=== PATIENT | female | born 1995 | race Caucasian/White ===

== ENCOUNTER 2017-08-15 08:33 | Inpatient (IN) | payer MEDICAID, OTHER ==
[~2017-08-15] VITALS: Ht 162.6 cm; Wt 59.0 kg
[~2017-08-15 08:33] MED LIST: FLUO40CA7 PO; QUET200T PO
[2017-08-15] MEDS ORDERED: DiphenhydrAMINE HCL 50 MG/ML VIAL IM ONE (09:15)
[2017-08-15] MEDS ORDERED: HALOPERIDOL LACTATE 5 MG/ML VIAL IM ONE (09:15)
[2017-08-15] MEDS ORDERED: LORazepam 2 MG/ML VIAL IM ONE (09:15)
[2017-08-15] MEDS ORDERED: HALOPERIDOL 5 MG TABLET PO PRN (09:45)
[2017-08-15 10:41] LABS: BASOPHILS % (AUTO) 0.2 % (0.0-2.0); EOSINOPHILS % (AUTO) 0 % (1.0-6.0); HEMATOCRIT 42.3 % (36-46); HEMOGLOBIN 14.7 g/dL (12.0-16.0); LYMPHOCYTES # (AUTO) 1.3 K/uL (1.0-4.8); LYMPHOCYTES % (AUTO) 23.4 % (22.0-44.0); MEAN CORPUSCULAR HEMOGLOBIN 31.6 pg (26.0-34.0); MEAN CORPUSCULAR HGB CONC 34.9 G/dL (31.0-37.0); MEAN CORPUSCULAR VOLUME 91 fL (80-100); MONOCYTES # (AUTO) 0.4 K/uL (0.1-1.0); MONOCYTES % (AUTO) 7.2 % (2.0-9.0); NEUTROPHILS # (AUTO) 3.9 K/uL (1.8-7.7); NEUTROPHILS % (AUTO) 69.2 % (40.0-70.0); PLATELET COUNT (AUTO) 167 K/uL (150-450); RED BLOOD CELL COUNT(AUTO) 4.66 MIL/uL (4.00-5.20); RED CELL DISTRIBUTION WIDTH 12.7 % (11.5-14.5); WHITE BLOOD COUNT (AUTO) 5.7 K/uL (4.5-11.0)
[2017-08-15 10:48] LABS: ANION GAP 18 mmol/L (8-16); CALCIUM, TOTAL 9.7 mg/dL (8.8-10.5); CARBON DIOXIDE 22 mmol/L (22-29); CHLORIDE 101 mmol/L (98-107); CREATININE 0.75 mg/dL (0.60-1.30); GLOMERULAR FILTR. RATE CALC > 60 mL/min (>60); POTASSIUM 4.4 mmol/L (3.5-5.1); SODIUM SERUM 141 mmol/L (136-145); UREA NITROGEN, BLOOD 12 mg/dL (7-18)
[2017-08-15 11:02] LABS: ALANINE AMINOTRANSFERASE 50 U/L (12-78); ALBUMIN 4.5 g/dL (3.4-5.0); ASPARTATE AMINOTRANSFERASE 23 U/L (15-37); BILIRUBIN,TOTAL 1.6 mg/dL (0.1-1.0); TOTAL PROTEIN, SERUM 7.8 g/dL (6.4-8.2)
[2017-08-15 11:06] LABS: CHOL/HDL RATIO 2.9 (3.9-5.7); THYROID STIMULATING HORMONE 20.47 uIU/mL (0.36-3.74)
[2017-08-15 11:51] VITALS: BP 120/83
[2017-08-15 16:09] VITALS: BP 118/87
[2017-08-15] MEDS: QUEtiapine FUMARATE 200 MG TABLET PO SCH (20:40)
[2017-08-16 06:01] VITALS: BP 120/88
[2017-08-16] MEDS ORDERED: BACITRACIN 28.4 GM OINTMENT TP PRN (08:00)
[2017-08-16] MEDS ORDERED: ALBUTEROL SULFATE HFA 90 MCG/PUFF 8 GM INHALER IH PRN (08:00)
[2017-08-16] MEDS ORDERED: LOPERAMIDE HCL 2 MG CAPSULE PO PRN (08:00)
[2017-08-16] MEDS ORDERED: ACETAMINOPHEN 325 MG TABLET PO PRN (08:00)
[2017-08-16] MEDS ORDERED: MAG HYDROX/AL HYDROX/SIMETH ES 30 ML SUSPENSION UDCUP PO PRN (08:00)
[2017-08-16] MEDS ORDERED: IBUPROFEN 600 MG TABLET PO PRN (08:00)
[2017-08-16] MEDS ORDERED: CloNIDine HCL 0.1 MG TABLET PO PRN (08:00)
[2017-08-16] MEDS ORDERED: MAGNESIUM HYDROXIDE SUSPENSION 30 ML UDCUP PO PRN (08:00)
[2017-08-16] MEDS: LEVOTHYROXINE SODIUM 100 MCG TABLET PO SCH (08:00)
[2017-08-16] MEDS ORDERED: PETROLATUM,WHITE 71 GM JELLY TP PRN (08:00)
[2017-08-16] MEDS ORDERED: BENZOCAINE/MENTHOL LOZENGE MM PRN (08:00)
[2017-08-16] MEDS ORDERED: ONDANSETRON HCL 4 MG TABLET PO PRN (08:00)
[2017-08-16] MEDS: LORazepam 2 MG TABLET PO PRN (16:04)
[2017-08-16 16:08] VITALS: BP 115/85
[2017-08-16] MEDS: QUEtiapine FUMARATE 200 MG TABLET PO SCH (20:41)
[2017-08-16] MEDS: ZOLPIDEM TARTRATE 10 MG TABLET PO PRN (21:00)
[2017-08-17 06:58] VITALS: BP 117/67
[2017-08-17] MEDS: LEVOTHYROXINE SODIUM 100 MCG TABLET PO SCH (07:21)
[2017-08-17] MEDS: LORazepam 2 MG TABLET PO PRN ×3 (08:06→20:27)
[2017-08-17 08:58] VITALS: BP 120/70
[2017-08-17] MEDS ORDERED: QUET100T PO (14:55)
[2017-08-17 16:00] VITALS: BP 121/88
[2017-08-17] MEDS: NICOTINE 21 MG/24 HOUR PATCH TD SCH (16:05)
[2017-08-17] MEDS: QUEtiapine FUMARATE 200 MG TABLET PO SCH (20:26)
[2017-08-18 06:39] VITALS: BP 120/68
[2017-08-18] MEDS: LEVOTHYROXINE SODIUM 100 MCG TABLET PO SCH (06:39)
[2017-08-18] MEDS: NICOTINE 21 MG/24 HOUR PATCH TD SCH (08:34)
[2017-08-18] MEDS: LORazepam 2 MG TABLET PO PRN ×2 (08:34→14:43)
[2017-08-18 09:46] VITALS: BP 122/70
[2017-08-18 16:42] VITALS: BP 116/92
[2017-08-18] MEDS: QUEtiapine FUMARATE 200 MG TABLET PO SCH (20:02)
[2017-08-18] MEDS: ZOLPIDEM TARTRATE 10 MG TABLET PO PRN (21:02)
[2017-08-19] MEDS: LEVOTHYROXINE SODIUM 100 MCG TABLET PO SCH (06:49)
[2017-08-19] MEDS: NICOTINE 21 MG/24 HOUR PATCH TD SCH (09:07)
[2017-08-19 10:15] VITALS: BP 120/80
[2017-08-19 14:55] VITALS: BP 115/80
[2017-08-19 16:33] VITALS: BP 111/75
[2017-08-19] MEDS: QUEtiapine FUMARATE 200 MG TABLET PO SCH (20:40)
[2017-08-19] MEDS: ZOLPIDEM TARTRATE 10 MG TABLET PO PRN (20:51)
[2017-08-20] MEDS: LEVOTHYROXINE SODIUM 100 MCG TABLET PO SCH (06:41)
[2017-08-20] MEDS: NICOTINE 21 MG/24 HOUR PATCH TD SCH (09:00)
[2017-08-20] MEDS: LORazepam 2 MG TABLET PO PRN (10:17)
[2017-08-20 10:18] VITALS: BP 118/77
[2017-08-20 18:03] VITALS: BP 90/60
[2017-08-20] MEDS: ZOLPIDEM TARTRATE 10 MG TABLET PO PRN (21:29)
[2017-08-20] MEDS: QUEtiapine FUMARATE 200 MG TABLET PO SCH (21:29)
[2017-08-21 01:48] VITALS: BP 103/63
[2017-08-21] MEDS: LEVOTHYROXINE SODIUM 100 MCG TABLET PO SCH (06:31)
[2017-08-21 08:24] VITALS: BP 114/71
[2017-08-21] MEDS: NICOTINE 21 MG/24 HOUR PATCH TD SCH (09:00)
[2017-08-21] MEDS: LORazepam 2 MG TABLET PO PRN (16:22)
[2017-08-21 16:32] VITALS: BP 112/64
[2017-08-21 17:33] VITALS: BP 115/68
[2017-08-21] MEDS: QUEtiapine FUMARATE 200 MG TABLET PO SCH (20:25)
[2017-08-21] MEDS: ZOLPIDEM TARTRATE 10 MG TABLET PO PRN (21:05)
[2017-08-22] MEDS: LEVOTHYROXINE SODIUM 100 MCG TABLET PO SCH (06:25)
[2017-08-22 08:54] VITALS: BP 116/71
[2017-08-22] MEDS: NICOTINE 21 MG/24 HOUR PATCH TD SCH (08:55)
[2017-08-22] MEDS: LORazepam 2 MG TABLET PO PRN ×3 (08:57→20:07)
[2017-08-22 16:25] VITALS: BP 130/87
[2017-08-22] MEDS: QUEtiapine FUMARATE 200 MG TABLET PO SCH (20:07)
[2017-08-22] MEDS: ZOLPIDEM TARTRATE 10 MG TABLET PO PRN (20:07)
[2017-08-23] MEDS: LEVOTHYROXINE SODIUM 100 MCG TABLET PO SCH (06:37)
[2017-08-23] MEDS: NICOTINE 21 MG/24 HOUR PATCH TD SCH (09:00)
[2017-08-23 09:13] VITALS: BP 129/74
[2017-08-23] MEDS: LORazepam 2 MG TABLET PO PRN ×2 (12:57→17:17)
[2017-08-23 16:11] VITALS: BP 123/79
[2017-08-23] MEDS: QUEtiapine FUMARATE 200 MG TABLET PO SCH (20:11)
[2017-08-23] MEDS: ZOLPIDEM TARTRATE 10 MG TABLET PO PRN (20:11)
[2017-08-24 05:00] VITALS: BP 118/72
[2017-08-24] MEDS: LEVOTHYROXINE SODIUM 100 MCG TABLET PO SCH (06:36)
[2017-08-24] MEDS: LORazepam 2 MG TABLET PO PRN ×2 (08:34→16:03)
[2017-08-24] MEDS: NICOTINE 21 MG/24 HOUR PATCH TD SCH (08:34)
[2017-08-24 08:37] VITALS: BP 121/71
[2017-08-24 16:18] VITALS: BP 109/79
[2017-08-24] MEDS: QUEtiapine FUMARATE 200 MG TABLET PO SCH (20:38)
[2017-08-24] MEDS: ZOLPIDEM TARTRATE 10 MG TABLET PO PRN (21:01)
[2017-08-25] MEDS: LEVOTHYROXINE SODIUM 100 MCG TABLET PO SCH (06:21)
[2017-08-25 06:45] VITALS: BP 103/60
[2017-08-25] MEDS: NICOTINE 21 MG/24 HOUR PATCH TD SCH (08:27)
[2017-08-25 08:30] VITALS: BP 104/68
[2017-08-25] MEDS: LORazepam 2 MG TABLET PO PRN ×2 (10:38→17:04)
[2017-08-25 17:04] VITALS: BP 118/65
[2017-08-25] MEDS: QUEtiapine FUMARATE 200 MG TABLET PO SCH (20:02)
[2017-08-25] MEDS: ZOLPIDEM TARTRATE 10 MG TABLET PO PRN (21:10)
[2017-08-26] MEDS: LEVOTHYROXINE SODIUM 100 MCG TABLET PO SCH (06:30)
[2017-08-26 08:09] VITALS: BP 112/61
[2017-08-26] MEDS: NICOTINE 21 MG/24 HOUR PATCH TD SCH (08:43)
[2017-08-26] MEDS: LORazepam 2 MG TABLET PO PRN ×3 (10:10→20:20)
[2017-08-26 16:14] VITALS: BP 119/71
[2017-08-26] MEDS: QUEtiapine FUMARATE 200 MG TABLET PO SCH (20:09)
[2017-08-26] MEDS: ZOLPIDEM TARTRATE 10 MG TABLET PO PRN (20:20)
[2017-08-27] MEDS: LEVOTHYROXINE SODIUM 100 MCG TABLET PO SCH (06:39)
[2017-08-27 08:30] VITALS: BP 110/74
[2017-08-27] MEDS: NICOTINE 21 MG/24 HOUR PATCH TD SCH (09:00)
[2017-08-27] MEDS: LORazepam 2 MG TABLET PO PRN ×2 (12:22→16:53)
[2017-08-27 16:11] VITALS: BP 113/67
[2017-08-27] MEDS: QUEtiapine FUMARATE 200 MG TABLET PO SCH (20:05)
[2017-08-27] MEDS: ZOLPIDEM TARTRATE 10 MG TABLET PO PRN (20:32)
[2017-08-28 03:25] VITALS: BP 117/69
[2017-08-28] MEDS: LEVOTHYROXINE SODIUM 100 MCG TABLET PO SCH (06:36)
[2017-08-28] MEDS: NICOTINE 21 MG/24 HOUR PATCH TD SCH (08:19)
[2017-08-28 09:00] VITALS: BP 118/70
[2017-08-28] MEDS: LORazepam 2 MG TABLET PO PRN ×2 (09:29→14:38)
[2017-08-28 17:57] VITALS: BP 124/60
[2017-08-28] MEDS: QUEtiapine FUMARATE 200 MG TABLET PO SCH (20:42)
[2017-08-28] MEDS: ZOLPIDEM TARTRATE 10 MG TABLET PO PRN (21:15)
[2017-08-29 01:28] VITALS: BP 117/64
[2017-08-29] MEDS: LORazepam 2 MG TABLET PO PRN ×3 (02:50→20:16)
[2017-08-29] MEDS: LEVOTHYROXINE SODIUM 100 MCG TABLET PO SCH (06:58)
[2017-08-29] MEDS: NICOTINE 21 MG/24 HOUR PATCH TD SCH (08:19)
[2017-08-29 10:26] VITALS: BP 118/70
[2017-08-29 16:38] VITALS: BP 129/74
[2017-08-29] MEDS: ZOLPIDEM TARTRATE 10 MG TABLET PO PRN (20:16)
[2017-08-29] MEDS: QUEtiapine FUMARATE 200 MG TABLET PO SCH (20:16)
[2017-08-30] MEDS: LEVOTHYROXINE SODIUM 100 MCG TABLET PO SCH (06:39)
[2017-08-30] MEDS: NICOTINE 21 MG/24 HOUR PATCH TD SCH (08:16)
[2017-08-30 08:52] VITALS: BP 118/61
[2017-08-30] MEDS: LORazepam 2 MG TABLET PO PRN ×2 (10:04→16:24)
[2017-08-30 16:00] VITALS: BP 122/84
[2017-08-30] MEDS: QUEtiapine FUMARATE 200 MG TABLET PO SCH (20:56)
[2017-08-30] MEDS: ZOLPIDEM TARTRATE 10 MG TABLET PO PRN (20:56)
[2017-08-31 05:39] VITALS: BP 117/67
[2017-08-31] MEDS: LEVOTHYROXINE SODIUM 100 MCG TABLET PO SCH (06:38)
[2017-08-31] MEDS: NICOTINE 21 MG/24 HOUR PATCH TD SCH (08:51)
[2017-08-31 08:57] VITALS: BP 120/70
[2017-08-31] MEDS: LORazepam 2 MG TABLET PO PRN ×2 (12:10→16:22)
[2017-08-31 16:00] VITALS: BP 115/71
[2017-08-31] MEDS: QUEtiapine FUMARATE 200 MG TABLET PO SCH (20:02)
[2017-08-31] MEDS: ZOLPIDEM TARTRATE 10 MG TABLET PO PRN (21:06)
[2017-09-01] MEDS: LEVOTHYROXINE SODIUM 100 MCG TABLET PO SCH (06:31)
[2017-09-01] MEDS: NICOTINE 21 MG/24 HOUR PATCH TD SCH (09:00)
[2017-09-01] MEDS: LORazepam 2 MG TABLET PO PRN ×2 (10:00→16:04)
[2017-09-01 10:01] VITALS: BP 127/70
[2017-09-01 16:36] VITALS: BP 117/72
[2017-09-01] MEDS: ZOLPIDEM TARTRATE 10 MG TABLET PO PRN (20:07)
[2017-09-01] MEDS: QUEtiapine FUMARATE 200 MG TABLET PO SCH (20:07)
[2017-09-02 06:18] VITALS: BP 116/76
[2017-09-02] MEDS: LEVOTHYROXINE SODIUM 100 MCG TABLET PO SCH (06:23)
[2017-09-02 08:32] VITALS: BP 116/76
[2017-09-02] MEDS: NICOTINE 21 MG/24 HOUR PATCH TD SCH (09:00)
[2017-09-02] MEDS: LORazepam 2 MG TABLET PO PRN ×2 (10:06→15:07)
[2017-09-02 16:11] VITALS: BP 131/85
[2017-09-02] MEDS: QUEtiapine FUMARATE 200 MG TABLET PO SCH (20:56)
[2017-09-02] MEDS: ZOLPIDEM TARTRATE 10 MG TABLET PO PRN (21:33)
[2017-09-03] MEDS: LEVOTHYROXINE SODIUM 100 MCG TABLET PO SCH (06:35)
[2017-09-03 08:15] VITALS: BP 116/66
[2017-09-03] MEDS: NICOTINE 21 MG/24 HOUR PATCH TD SCH (09:00)
[2017-09-03 11:26] VITALS: BP 118/66
[2017-09-03] MEDS: LORazepam 2 MG TABLET PO PRN ×2 (11:26→17:32)
[2017-09-03 16:12] VITALS: BP 128/67
[2017-09-03] MEDS: QUEtiapine FUMARATE 200 MG TABLET PO SCH (20:33)
[2017-09-04 06:10] VITALS: BP 101/74
[2017-09-04] MEDS: LEVOTHYROXINE SODIUM 100 MCG TABLET PO SCH (07:11)
[2017-09-04 08:42] VITALS: BP 104/74
[2017-09-04] MEDS: NICOTINE 21 MG/24 HOUR PATCH TD SCH ×2 (09:00→11:26)
[2017-09-04] MEDS: QUEtiapine FUMARATE 200 MG TABLET PO SCH (20:16)
[2017-09-04] MEDS: ZOLPIDEM TARTRATE 10 MG TABLET PO PRN (20:16)
[2017-09-05] MEDS: LEVOTHYROXINE SODIUM 100 MCG TABLET PO SCH (06:40)
[2017-09-05 08:26] VITALS: BP 107/66
[2017-09-05] MEDS: NICOTINE 21 MG/24 HOUR PATCH TD SCH (08:51)
[2017-09-05] MEDS: QUEtiapine FUMARATE 200 MG TABLET PO SCH (20:10)
[2017-09-06] MEDS: LEVOTHYROXINE SODIUM 100 MCG TABLET PO SCH (06:47)
[2017-09-06 08:31] VITALS: BP 104/62
[2017-09-06] MEDS: NICOTINE 21 MG/24 HOUR PATCH TD SCH (08:38)
[2017-09-06] MEDS: LORazepam 2 MG TABLET PO PRN ×3 (10:34→20:12)
[2017-09-06 10:35] VITALS: BP 110/66
[2017-09-06 16:00] VITALS: BP 123/75
[2017-09-06] MEDS: QUEtiapine FUMARATE 200 MG TABLET PO SCH (20:12)
[2017-09-06] MEDS: ZOLPIDEM TARTRATE 10 MG TABLET PO PRN (20:12)
[2017-09-07] MEDS: LORazepam 2 MG TABLET PO PRN (02:41)
[2017-09-07 06:34] VITALS: BP 103/61
[2017-09-07] MEDS: LEVOTHYROXINE SODIUM 100 MCG TABLET PO SCH (06:46)
[2017-09-07] MEDS: NICOTINE 21 MG/24 HOUR PATCH TD SCH (08:19)
[2017-09-07] MEDS: LORazepam 1 MG TABLET PO PRN ×2 (13:02→17:42)
[2017-09-07] MEDS: QUEtiapine FUMARATE 200 MG TABLET PO SCH (20:39)
[2017-09-08 06:19] VITALS: BP 118/75
[2017-09-08] MEDS: LEVOTHYROXINE SODIUM 100 MCG TABLET PO SCH (06:24)
[2017-09-08] MEDS: NICOTINE 21 MG/24 HOUR PATCH TD SCH (08:00)
[2017-09-08 09:17] VITALS: BP 120/66
[2017-09-08 10:13] LABS: APPEARANCE,URINE CLOUDY (CLEAR); GLUCOSE, URINE (UA) NEGATIVE (NEGATIVE); KETONES,URINE NEGATIVE (NEGATIVE); LEUKOCYTE ESTERASE ,URINE NEGATIVE (NEGATIVE); OCCULT BLOOD,URINE NEGATIVE (NEGATIVE); PH,URINE 6.5 (5.0-8.0); PROTEIN,URINE NEGATIVE (NEGATIVE)
[2017-09-08 10:19] LABS: ADD UA MICROSCOPIC YES
[2017-09-08 10:20] LABS: RBC,URINE None Seen /HPF (0-2); SQUAMOUS EPITHELIAL CELL,UR Many /LPF (None Seen); WBC,URINE None Seen /HPF (0-5)
[2017-09-08] MEDS: LORazepam 1 MG TABLET PO PRN (14:40)
[2017-09-08] MEDS: QUEtiapine FUMARATE 200 MG TABLET PO SCH (20:32)
[2017-09-09 04:44] VITALS: BP 121/63
[2017-09-09] MEDS: LEVOTHYROXINE SODIUM 100 MCG TABLET PO SCH (06:01)
[2017-09-09] MEDS: NICOTINE 21 MG/24 HOUR PATCH TD SCH (08:07)
[2017-09-09 08:45] VITALS: BP 116/74
[2017-09-09] MEDS: LORazepam 1 MG TABLET PO PRN (14:05)
[2017-09-09 16:51] VITALS: BP 120/87
[2017-09-09] MEDS: QUEtiapine FUMARATE 200 MG TABLET PO SCH (20:23)
[2017-09-10] MEDS: LEVOTHYROXINE SODIUM 100 MCG TABLET PO SCH (06:55)
[2017-09-10 07:08] VITALS: BP 118/72
[2017-09-10] MEDS: NICOTINE 21 MG/24 HOUR PATCH TD SCH (09:00)
[2017-09-10 10:51] VITALS: BP 119/63
[2017-09-10] MEDS: LORazepam 1 MG TABLET PO PRN ×3 (10:53→20:07)
[2017-09-10 16:00] VITALS: BP 115/76
[2017-09-10] MEDS: ZOLPIDEM TARTRATE 10 MG TABLET PO PRN (20:07)
[2017-09-10] MEDS: QUEtiapine FUMARATE 200 MG TABLET PO SCH (20:07)
[2017-09-11 06:32] VITALS: BP 117/63
[2017-09-11] MEDS: LEVOTHYROXINE SODIUM 100 MCG TABLET PO SCH (06:34)
[2017-09-11 08:51] VITALS: BP 122/68
[2017-09-11] MEDS: LORazepam 1 MG TABLET PO PRN ×2 (13:52→18:32)
[2017-09-11 16:05] VITALS: BP 128/80
[2017-09-11] MEDS: ZOLPIDEM TARTRATE 10 MG TABLET PO PRN (20:23)
[2017-09-11] MEDS: QUEtiapine FUMARATE 200 MG TABLET PO SCH (20:23)
[2017-09-12 06:24] VITALS: BP 105/61
[2017-09-12] MEDS: LEVOTHYROXINE SODIUM 100 MCG TABLET PO SCH (06:31)
[2017-09-12 08:31] VITALS: BP 111/57
[2017-09-12] MEDS: LORazepam 1 MG TABLET PO PRN ×2 (10:46→20:21)
[2017-09-12 16:09] VITALS: BP 115/73
[2017-09-12] MEDS: QUEtiapine FUMARATE 200 MG TABLET PO SCH (20:20)
[2017-09-12] MEDS: ZOLPIDEM TARTRATE 10 MG TABLET PO PRN (21:01)
[2017-09-13] MEDS: LEVOTHYROXINE SODIUM 100 MCG TABLET PO SCH (06:43)
[2017-09-13 07:05] VITALS: BP 108/68
[2017-09-13 08:08] VITALS: BP 119/74
[2017-09-13] MEDS: QUEtiapine FUMARATE 200 MG TABLET PO SCH (20:05)
[2017-09-13] MEDS: ZOLPIDEM TARTRATE 10 MG TABLET PO PRN (20:18)
[2017-09-14] MEDS: LEVOTHYROXINE SODIUM 100 MCG TABLET PO SCH (06:15)
[2017-09-14 09:00] VITALS: BP 113/59
[2017-09-14] MEDS ORDERED: QUET200T PO (12:26)
[2017-09-14] MEDS ORDERED: LEVO125T95 PO (12:26)
[2017-09-14] MEDS: QUEtiapine FUMARATE 200 MG TABLET PO SCH (20:13)
[2017-09-15 06:20] VITALS: BP 121/69
[2017-09-15] MEDS: LEVOTHYROXINE SODIUM 100 MCG TABLET PO SCH (06:52)
[2017-09-15 08:30] VITALS: BP 114/57
[2017-09-15] MEDS: LORazepam 1 MG TABLET PO PRN (17:32)
[2017-09-15] MEDS: QUEtiapine FUMARATE 200 MG TABLET PO SCH (20:14)
[2017-09-16 05:43] VITALS: BP 110/82
[2017-09-16] MEDS: LEVOTHYROXINE SODIUM 100 MCG TABLET PO SCH (06:32)
[2017-09-16] MEDS: QUEtiapine FUMARATE 200 MG TABLET PO SCH (20:36)
[2017-09-17] MEDS: LEVOTHYROXINE SODIUM 100 MCG TABLET PO SCH (06:26)
[2017-09-17 08:43] VITALS: BP 113/72
[2017-09-17] MEDS: LORazepam 1 MG TABLET PO PRN ×2 (14:38→20:37)
[2017-09-17] MEDS: QUEtiapine FUMARATE 200 MG TABLET PO SCH (20:37)
[2017-09-18] MEDS: LEVOTHYROXINE SODIUM 100 MCG TABLET PO SCH (06:40)
[2017-09-18] MEDS: LORazepam 1 MG TABLET PO PRN ×2 (12:13→20:13)
[2017-09-18] MEDS: QUEtiapine FUMARATE 200 MG TABLET PO SCH (20:13)
[2017-09-19] MEDS: LEVOTHYROXINE SODIUM 100 MCG TABLET PO SCH (06:38)
[2017-09-19 08:00] VITALS: BP 115/60
[2017-09-19] MEDS ORDERED: TUBERCULIN, PURIFIED PROTEIN DERIVATIVE 5 TU/0.1 ML SYG ID ONE (10:45)
[2017-09-19] MEDS: LORazepam 1 MG TABLET PO PRN ×2 (13:57→19:02)
[2017-09-19 16:18] VITALS: BP 110/70
[2017-09-19] MEDS: QUEtiapine FUMARATE 200 MG TABLET PO SCH (20:10)
[2017-09-19] MEDS ORDERED: LEVO100 PO (21:11)
[2017-09-20] MEDS: LEVOTHYROXINE SODIUM 100 MCG TABLET PO SCH (06:25)
[2017-09-20 07:12] VITALS: BP 112/68
== END 2017-09-20 07:33 | disposition home or self-care (01) | DRG 753 ==
LOC: EMS 08:34 → B3A 10:08
PROVIDERS: ATTEND Psychiatry & Neurology Child & Adolescent Psychiatry
DX: F31.2 Bipolar disorder, current episode manic severe with psychotic features (principal); E32.8 Other diseases of thymus; E03.9 Hypothyroidism, unspecified; F12.90 Cannabis use, unspecified, uncomplicated; F17.200 Nicotine dependence, unspecified, uncomplicated; F41.9 Anxiety disorder, unspecified; G47.00 Insomnia, unspecified; Z79.899 Other long term (current) drug therapy; Z81.8 Family history of other mental and behavioral disorders; Z71.6 Tobacco abuse counseling; Z71.51 Drug abuse counseling and surveillance of drug abuser; Z56.0 Unemployment, unspecified; Z72.89 Other problems related to lifestyle; Z71.41 Alcohol abuse counseling and surveillance of alcoholic; R30.0 Dysuria
CPT/HCPCS: 80307; 82306; 84439; 84443; 87081; 96372; 99285; G0480; J1200; J1630; J2060

== ENCOUNTER 2017-10-15 20:25 | Inpatient (IN) | payer MEDICAID, OTHER ==
[~2017-10-15] VITALS: Ht 162.6 cm; Wt 60.1 kg
[~2017-10-15 20:25] MED LIST changes: -FLUO40CA7 PO; +LEVO100 PO
[2017-10-15] MEDS ORDERED: HALOPERIDOL LACTATE 5 MG/ML VIAL IM ONE (21:45)
[2017-10-15] MEDS ORDERED: LORazepam 2 MG/ML VIAL IM ONE (21:45)
[2017-10-15] MEDS ORDERED: DiphenhydrAMINE HCL 50 MG/ML VIAL IM ONE (21:45)
[2017-10-15] MEDS ORDERED: HALOPERIDOL 5 MG TABLET PO PRN (23:30)
[2017-10-15 23:37] LABS: BASOPHILS % (AUTO) 0.4 % (0.0-2.0); EOSINOPHILS % (AUTO) 0.1 % (1.0-6.0); HEMATOCRIT 39.1 % (36-46); HEMOGLOBIN 13.3 g/dL (12.0-16.0); LYMPHOCYTES # (AUTO) 2.7 K/uL (1.0-4.8); LYMPHOCYTES % (AUTO) 35.3 % (22.0-44.0); MEAN CORPUSCULAR HEMOGLOBIN 31.4 pg (26.0-34.0); MEAN CORPUSCULAR HGB CONC 34.1 G/dL (31.0-37.0); MEAN CORPUSCULAR VOLUME 92 fL (80-100); MONOCYTES # (AUTO) 0.6 K/uL (0.1-1.0); MONOCYTES % (AUTO) 7.6 % (2.0-9.0); NEUTROPHILS # (AUTO) 4.4 K/uL (1.8-7.7); NEUTROPHILS % (AUTO) 56.6 % (40.0-70.0); PLATELET COUNT (AUTO) 183 K/uL (150-450); RED BLOOD CELL COUNT(AUTO) 4.24 MIL/uL (4.00-5.20); RED CELL DISTRIBUTION WIDTH 13.4 % (11.5-14.5)
[2017-10-15 23:47] LABS: ANION GAP 8 mmol/L (8-16); CALCIUM, TOTAL 9.1 mg/dL (8.8-10.5); CARBON DIOXIDE 27 mmol/L (22-29); CHLORIDE 108 mmol/L (98-107); CREATININE 0.77 mg/dL (0.60-1.30); GLOMERULAR FILTR. RATE CALC > 60 mL/min (>60); GLUCOSE,RANDOM 75 mg/dL (70-110); POTASSIUM 3.6 mmol/L (3.5-5.1); SODIUM SERUM 143 mmol/L (136-145); UREA NITROGEN, BLOOD 8 mg/dL (7-18)
[2017-10-15 23:53] LABS: ALANINE AMINOTRANSFERASE 36 U/L (12-78); ALKALINE PHOSPHATASE 91 U/L (46-116); ASPARTATE AMINOTRANSFERASE 23 U/L (15-37); BILIRUBIN,TOTAL 1.1 mg/dL (0.1-1.0); TOTAL PROTEIN, SERUM 7.2 g/dL (6.4-8.2)
[2017-10-16 02:56] LABS: CHOL/HDL RATIO 2.6 (3.9-5.7); CHOLESTEROL 140 mg/dL (131-200); HDL CHOLESTEROL 53 mg/dL (40-60); LDL CHOL (CALC.) 81 mg/dL (0-130); TRIGLYCERIDES 32 mg/dL (15-150)
[2017-10-16] MEDS ORDERED: INFLUENZA VIRUS VACCINE QVS 2017-18 (3YR+)/PF 60 MCG/0.5 ML SYRINGE IM ONE (03:15)
[2017-10-16 04:52] VITALS: BP 104/55
[2017-10-16] MEDS ORDERED: HALOPERIDOL LACTATE 5 MG/ML VIAL IM PRN (19:00)
[2017-10-16] MEDS: PALIPERIDONE 3 MG ER TABLET PO SCH (19:00)
[2017-10-16] MEDS ORDERED: DiphenhydrAMINE HCL 50 MG/ML VIAL ONE (20:57)
[2017-10-16] MEDS ORDERED: HALOPERIDOL LACTATE 5 MG/ML VIAL IM ONE (21:00)
[2017-10-16] MEDS ORDERED: DiphenhydrAMINE HCL 50 MG/ML VIAL IM ONE (21:00)
[2017-10-16] MEDS ORDERED: LORazepam 2 MG/ML VIAL IM ONE (21:00)
[2017-10-17] MEDS: LEVOTHYROXINE SODIUM 50 MCG TABLET PO SCH (06:57)
[2017-10-17] MEDS ORDERED: PALIPERIDONE 3 MG ER TABLET PO SCH ×2 (09:00→17:00)
[2017-10-17] MEDS: HALOPERIDOL LACTATE 5 MG/ML VIAL IM PRN ×2 (13:30→18:21)
[2017-10-17 18:44] VITALS: BP 124/92
[2017-10-17] MEDS ORDERED: HALOPERIDOL LACTATE 5 MG/ML VIAL IM ONE (19:45)
[2017-10-17] MEDS ORDERED: DiphenhydrAMINE HCL 50 MG/ML VIAL IM ONE (19:45)
[2017-10-17] MEDS ORDERED: LORazepam 2 MG/ML VIAL IM ONE (19:45)
[2017-10-18] MEDS: LEVOTHYROXINE SODIUM 50 MCG TABLET PO SCH (06:50)
[2017-10-18] MEDS ORDERED: PALIPERIDONE 6 MG ER TABLET PO SCH (09:00)
[2017-10-18] MEDS: HALOPERIDOL LACTATE 5 MG/ML VIAL IM PRN (09:11)
[2017-10-18] MEDS ORDERED: HALOPERIDOL LACTATE 5 MG/ML VIAL ONE (16:09)
[2017-10-18] MEDS ORDERED: DiphenhydrAMINE HCL 50 MG/ML VIAL ONE (16:09)
[2017-10-18] MEDS ORDERED: LORazepam 2 MG/ML VIAL IM ONE (16:15)
[2017-10-18] MEDS ORDERED: DiphenhydrAMINE HCL 50 MG/ML VIAL IM ONE (16:15)
[2017-10-18] MEDS ORDERED: HALOPERIDOL LACTATE 5 MG/ML VIAL IM ONE (16:15)
[2017-10-18 17:00] VITALS: BP 106/66
[2017-10-18] MEDS: QUEtiapine FUMARATE 200 MG TABLET PO SCH (20:14)
[2017-10-18] MEDS ORDERED: HALOPERIDOL LACTATE 5 MG/ML VIAL IM PRN (21:00)
[2017-10-19] MEDS: LEVOTHYROXINE SODIUM 50 MCG TABLET PO SCH (07:11)
[2017-10-19 12:39] VITALS: BP 121/72
[2017-10-19] MEDS: QUEtiapine FUMARATE 200 MG TABLET PO SCH (20:17)
[2017-10-20] MEDS: LEVOTHYROXINE SODIUM 50 MCG TABLET PO SCH (07:17)
[2017-10-20 08:33] VITALS: BP 121/84
[2017-10-20] MEDS: LORazepam 2 MG TABLET PO PRN ×2 (13:47→17:52)
[2017-10-20 17:48] VITALS: BP 117/80
[2017-10-20] MEDS: QUEtiapine FUMARATE 200 MG TABLET PO SCH (20:13)
[2017-10-21] MEDS: LEVOTHYROXINE SODIUM 50 MCG TABLET PO SCH (06:45)
[2017-10-21 08:33] VITALS: BP 115/76
[2017-10-21 16:28] VITALS: BP 115/83
[2017-10-21] MEDS: LORazepam 2 MG TABLET PO PRN (16:33)
[2017-10-21] MEDS: QUEtiapine FUMARATE 200 MG TABLET PO SCH (20:10)
[2017-10-21] MEDS: ZOLPIDEM TARTRATE 10 MG TABLET PO PRN (20:48)
[2017-10-22] MEDS: LEVOTHYROXINE SODIUM 50 MCG TABLET PO SCH (06:41)
[2017-10-22 08:26] VITALS: BP 117/61
[2017-10-22] MEDS: LORazepam 2 MG TABLET PO PRN (12:04)
[2017-10-22 15:31] LABS: AMPHET/METH SCREEN,URINE NEGATIVE (NEGATIVE); BARBITURATE SCREEN, URINE NEGATIVE (NEGATIVE); BENZODIAZEPINES SCREEN,URINE NEGATIVE (NEGATIVE); CANNABINOID SCREEN,URINE NEGATIVE (NEGATIVE); COCAINE SCREEN,URINE NEGATIVE (NEGATIVE); METHADONE SCREEN, URINE NEGATIVE (NEGATIVE); OPIATE SCREEN,URINE NEGATIVE (NEGATIVE)
[2017-10-22 15:35] LABS: PHENCYCLIDINE SCREEN,URINE NEGATIVE (NEGATIVE)
[2017-10-22 19:37] VITALS: BP 121/80
[2017-10-22] MEDS: QUEtiapine FUMARATE 200 MG TABLET PO SCH (20:51)
[2017-10-23] MEDS: LEVOTHYROXINE SODIUM 50 MCG TABLET PO SCH (07:02)
[2017-10-23 08:17] VITALS: BP 120/80
[2017-10-23] MEDS ORDERED: TUBERCULIN, PURIFIED PROTEIN DERIVATIVE 5 TU/0.1 ML SYG ID ONE (15:30)
[2017-10-23 19:54] VITALS: BP 122/81
[2017-10-23] MEDS: QUEtiapine FUMARATE 200 MG TABLET PO SCH (20:35)
[2017-10-24] MEDS: LEVOTHYROXINE SODIUM 50 MCG TABLET PO SCH (06:20)
[2017-10-24] MEDS: QUEtiapine FUMARATE 200 MG TABLET PO SCH (21:03)
[2017-10-24] MEDS: ZOLPIDEM TARTRATE 10 MG TABLET PO PRN (21:04)
[2017-10-24] MEDS: LORazepam 2 MG TABLET PO PRN (21:04)
[2017-10-25] MEDS: LEVOTHYROXINE SODIUM 50 MCG TABLET PO SCH (07:14)
[2017-10-25] MEDS: LORazepam 2 MG TABLET PO PRN (12:59)
[2017-10-25] MEDS: QUEtiapine FUMARATE 200 MG TABLET PO SCH (20:10)
[2017-10-25] MEDS: ZOLPIDEM TARTRATE 10 MG TABLET PO PRN (20:10)
[2017-10-26] MEDS: LEVOTHYROXINE SODIUM 50 MCG TABLET PO SCH (06:47)
[2017-10-26 08:17] VITALS: BP 118/67
[2017-10-26] MEDS: LORazepam 2 MG TABLET PO PRN ×2 (14:35→18:38)
[2017-10-26 17:54] VITALS: BP 124/77
[2017-10-26] MEDS: QUEtiapine FUMARATE 200 MG TABLET PO SCH (20:11)
[2017-10-26] MEDS: ZOLPIDEM TARTRATE 10 MG TABLET PO PRN (20:11)
[2017-10-27] MEDS: LEVOTHYROXINE SODIUM 50 MCG TABLET PO SCH (07:06)
[2017-10-27 08:00] VITALS: BP 128/69
[2017-10-27] MEDS: LORazepam 2 MG TABLET PO PRN ×2 (13:28→18:53)
[2017-10-27 18:44] VITALS: BP 126/73
[2017-10-27] MEDS: ZOLPIDEM TARTRATE 10 MG TABLET PO PRN (18:53)
[2017-10-27] MEDS: QUEtiapine FUMARATE 200 MG TABLET PO SCH (20:24)
[2017-10-28] MEDS: LEVOTHYROXINE SODIUM 50 MCG TABLET PO SCH (06:59)
[2017-10-28 08:27] VITALS: BP 105/59
[2017-10-28 08:28] VITALS: BP 105/59
[2017-10-28] MEDS: LORazepam 2 MG TABLET PO PRN ×2 (10:19→16:04)
[2017-10-28 16:56] VITALS: BP 113/62
[2017-10-28] MEDS ORDERED: MAG HYDROX/AL HYDROX/SIMETH ES 30 ML SUSPENSION UDCUP PO PRN (17:45)
[2017-10-28] MEDS ORDERED: MAGNESIUM HYDROXIDE SUSPENSION 30 ML UDCUP PO PRN (17:45)
[2017-10-28] MEDS ORDERED: ACETAMINOPHEN 325 MG TABLET PO PRN (17:45)
[2017-10-28] MEDS ORDERED: ONDANSETRON HCL 4 MG TABLET PO PRN (17:45)
[2017-10-28] MEDS ORDERED: BACITRACIN 28.4 GM OINTMENT TP PRN (17:45)
[2017-10-28] MEDS ORDERED: PETROLATUM,WHITE 71 GM JELLY TP PRN (17:45)
[2017-10-28] MEDS ORDERED: CloNIDine HCL 0.1 MG TABLET PO PRN (17:45)
[2017-10-28] MEDS ORDERED: LOPERAMIDE HCL 2 MG CAPSULE PO PRN (17:45)
[2017-10-28] MEDS ORDERED: IBUPROFEN 600 MG TABLET PO PRN (17:45)
[2017-10-28] MEDS: QUEtiapine FUMARATE 200 MG TABLET PO SCH (20:42)
[2017-10-29] MEDS: LEVOTHYROXINE SODIUM 50 MCG TABLET PO SCH (06:45)
[2017-10-29] MEDS: OMEPRAZOLE 20 MG CAPSULE PO SCH (08:38)
[2017-10-29] MEDS: DOCUSATE SODIUM 100 MG CAPSULE PO SCH (08:38)
[2017-10-29 08:59] VITALS: BP 102/69
[2017-10-29] MEDS ORDERED: TUBERCULIN, PURIFIED PROTEIN DERIVATIVE 5 TU/0.1 ML SYG ID ONE (10:45)
[2017-10-29] MEDS: LORazepam 2 MG TABLET PO PRN (13:11)
[2017-10-29 18:00] VITALS: BP 126/80
[2017-10-29] MEDS: QUEtiapine FUMARATE 200 MG TABLET PO SCH (20:39)
[2017-10-30] MEDS: LEVOTHYROXINE SODIUM 50 MCG TABLET PO SCH (07:08)
[2017-10-30] MEDS: DOCUSATE SODIUM 100 MG CAPSULE PO SCH (09:00)
[2017-10-30] MEDS: OMEPRAZOLE 20 MG CAPSULE PO SCH (09:00)
[2017-10-30] MEDS: LORazepam 2 MG TABLET PO PRN ×2 (14:30→20:23)
[2017-10-30] MEDS: QUEtiapine FUMARATE 200 MG TABLET PO SCH (20:22)
[2017-10-31 04:52] VITALS: BP 103/66
[2017-10-31] MEDS: LEVOTHYROXINE SODIUM 50 MCG TABLET PO SCH (07:17)
[2017-10-31 08:21] VITALS: BP 128/74
[2017-10-31 08:26] VITALS: BP 128/74
[2017-10-31] MEDS: DOCUSATE SODIUM 100 MG CAPSULE PO SCH (09:00)
[2017-10-31] MEDS: OMEPRAZOLE 20 MG CAPSULE PO SCH (09:00)
[2017-10-31] MEDS: LORazepam 2 MG TABLET PO PRN ×2 (13:23→17:24)
[2017-10-31 17:01] VITALS: BP 122/75
[2017-10-31] MEDS: QUEtiapine FUMARATE 200 MG TABLET PO SCH (20:05)
[2017-10-31] MEDS: ZOLPIDEM TARTRATE 10 MG TABLET PO PRN (20:39)
[2017-11-01] MEDS: LEVOTHYROXINE SODIUM 50 MCG TABLET PO SCH (07:01)
[2017-11-01] MEDS: DOCUSATE SODIUM 100 MG CAPSULE PO SCH (09:00)
[2017-11-01] MEDS: OMEPRAZOLE 20 MG CAPSULE PO SCH (09:00)
[2017-11-01] MEDS: LORazepam 2 MG TABLET PO PRN (14:20)
[2017-11-01 16:42] VITALS: BP 102/72
[2017-11-01] MEDS: QUEtiapine FUMARATE 200 MG TABLET PO SCH (20:48)
[2017-11-01] MEDS: ZOLPIDEM TARTRATE 10 MG TABLET PO PRN (20:48)
[2017-11-02] MEDS: LEVOTHYROXINE SODIUM 50 MCG TABLET PO SCH (06:19)
[2017-11-02 08:08] VITALS: BP 136/81
[2017-11-02] MEDS: DOCUSATE SODIUM 100 MG CAPSULE PO SCH (08:33)
[2017-11-02] MEDS: OMEPRAZOLE 20 MG CAPSULE PO SCH (08:34)
[2017-11-02] MEDS: QUEtiapine FUMARATE 200 MG TABLET PO SCH (20:55)
[2017-11-03] MEDS: LEVOTHYROXINE SODIUM 50 MCG TABLET PO SCH (07:00)
[2017-11-03] MEDS: DOCUSATE SODIUM 100 MG CAPSULE PO SCH (09:00)
[2017-11-03] MEDS: OMEPRAZOLE 20 MG CAPSULE PO SCH (09:00)
[2017-11-03 18:34] VITALS: BP 118/78
[2017-11-03] MEDS: QUEtiapine FUMARATE 200 MG TABLET PO SCH (20:11)
[2017-11-04] MEDS: LEVOTHYROXINE SODIUM 50 MCG TABLET PO SCH (06:48)
[2017-11-04] MEDS: OMEPRAZOLE 20 MG CAPSULE PO SCH (09:00)
[2017-11-04] MEDS: DOCUSATE SODIUM 100 MG CAPSULE PO SCH (09:00)
[2017-11-04] MEDS: QUEtiapine FUMARATE 200 MG TABLET PO SCH (20:26)
[2017-11-05] MEDS: LEVOTHYROXINE SODIUM 50 MCG TABLET PO SCH (06:41)
[2017-11-05] MEDS: DOCUSATE SODIUM 100 MG CAPSULE PO SCH (09:00)
[2017-11-05] MEDS: OMEPRAZOLE 20 MG CAPSULE PO SCH (09:00)
[2017-11-05 16:00] VITALS: BP 114/71
[2017-11-05] MEDS: LORazepam 2 MG TABLET PO PRN (18:33)
[2017-11-05] MEDS: QUEtiapine FUMARATE 200 MG TABLET PO SCH (20:30)
[2017-11-06] MEDS: LEVOTHYROXINE SODIUM 50 MCG TABLET PO SCH (06:33)
[2017-11-06] MEDS: QUEtiapine FUMARATE 200 MG TABLET PO SCH (20:53)
[2017-11-07] MEDS: LEVOTHYROXINE SODIUM 50 MCG TABLET PO SCH (06:54)
[2017-11-07] MEDS: QUEtiapine FUMARATE 200 MG TABLET PO SCH (20:21)
[2017-11-08] MEDS: LEVOTHYROXINE SODIUM 50 MCG TABLET PO SCH (06:51)
[2017-11-08] MEDS: BENZOYL PEROXIDE 5% TP SCH (18:15)
[2017-11-08] MEDS: QUEtiapine FUMARATE 200 MG TABLET PO SCH (20:50)
[2017-11-09] MEDS: LEVOTHYROXINE SODIUM 50 MCG TABLET PO SCH (06:59)
[2017-11-09] MEDS: BENZOYL PEROXIDE 5% TP SCH (09:00)
[2017-11-09] MEDS: QUEtiapine FUMARATE 200 MG TABLET PO SCH (20:25)
[2017-11-10] MEDS: LEVOTHYROXINE SODIUM 50 MCG TABLET PO SCH (06:48)
[2017-11-10] MEDS: BENZOYL PEROXIDE 5% TP SCH (09:00)
[2017-11-10] MEDS: QUEtiapine FUMARATE 200 MG TABLET PO SCH (20:20)
[2017-11-11] MEDS: LEVOTHYROXINE SODIUM 50 MCG TABLET PO SCH (06:49)
[2017-11-11] MEDS: BENZOYL PEROXIDE 5% TP SCH (08:45)
[2017-11-11] MEDS: QUEtiapine FUMARATE 200 MG TABLET PO SCH (20:54)
[2017-11-12] MEDS: LEVOTHYROXINE SODIUM 50 MCG TABLET PO SCH (06:42)
[2017-11-12 08:14] VITALS: BP 116/78
[2017-11-12] MEDS: BENZOYL PEROXIDE 5% TP SCH (09:07)
[2017-11-12] MEDS: QUEtiapine FUMARATE 200 MG TABLET PO SCH (20:13)
[2017-11-13] MEDS: LEVOTHYROXINE SODIUM 50 MCG TABLET PO SCH (06:55)
[2017-11-13] MEDS: BENZOYL PEROXIDE 5% TP SCH (09:35)
[2017-11-13] MEDS: QUEtiapine FUMARATE 200 MG TABLET PO SCH (20:11)
[2017-11-14] MEDS: LEVOTHYROXINE SODIUM 50 MCG TABLET PO SCH (06:49)
[2017-11-14] MEDS: BENZOYL PEROXIDE 5% TP SCH (08:49)
[2017-11-14] MEDS: LORazepam 2 MG TABLET PO PRN ×2 (08:58→16:09)
[2017-11-14 16:39] VITALS: BP 113/69
[2017-11-14] MEDS: QUEtiapine FUMARATE 200 MG TABLET PO SCH (20:19)
[2017-11-14] MEDS: ZOLPIDEM TARTRATE 10 MG TABLET PO PRN (20:36)
[2017-11-15] MEDS: LEVOTHYROXINE SODIUM 50 MCG TABLET PO SCH (06:53)
[2017-11-15] MEDS: BENZOYL PEROXIDE 5% TP SCH (08:25)
[2017-11-15 16:00] VITALS: BP 148/92
[2017-11-15] MEDS: LORazepam 2 MG TABLET PO PRN (17:55)
[2017-11-15] MEDS: QUEtiapine FUMARATE 200 MG TABLET PO SCH (20:50)
[2017-11-16] MEDS: LEVOTHYROXINE SODIUM 50 MCG TABLET PO SCH (06:42)
[2017-11-16] MEDS: BENZOYL PEROXIDE 5% TP SCH (08:41)
[2017-11-16] MEDS: LORazepam 2 MG TABLET PO PRN ×2 (12:33→18:15)
[2017-11-16 18:11] VITALS: BP 136/72
[2017-11-16] MEDS: QUEtiapine FUMARATE 200 MG TABLET PO SCH (20:16)
[2017-11-17] MEDS: LEVOTHYROXINE SODIUM 50 MCG TABLET PO SCH (06:52)
[2017-11-17] MEDS: BENZOYL PEROXIDE 5% TP SCH (09:22)
[2017-11-17 17:59] VITALS: BP 116/78
[2017-11-17] MEDS: QUEtiapine FUMARATE 200 MG TABLET PO SCH (20:25)
[2017-11-18] MEDS: LEVOTHYROXINE SODIUM 50 MCG TABLET PO SCH (07:11)
[2017-11-18] MEDS: BENZOYL PEROXIDE 5% TP SCH (09:00)
[2017-11-18 16:00] VITALS: BP 121/73
[2017-11-18] MEDS: QUEtiapine FUMARATE 200 MG TABLET PO SCH (20:18)
[2017-11-19] MEDS: LEVOTHYROXINE SODIUM 50 MCG TABLET PO SCH (06:35)
[2017-11-19] MEDS: QUEtiapine FUMARATE 200 MG TABLET PO SCH (20:17)
[2017-11-20] MEDS: LEVOTHYROXINE SODIUM 50 MCG TABLET PO SCH (06:55)
[2017-11-20] MEDS: QUEtiapine FUMARATE 200 MG TABLET PO SCH (20:20)
[2017-11-21] MEDS: LEVOTHYROXINE SODIUM 50 MCG TABLET PO SCH (07:00)
[2017-11-21] MEDS: QUEtiapine FUMARATE 200 MG TABLET PO SCH (21:48)
[2017-11-22] MEDS: LEVOTHYROXINE SODIUM 50 MCG TABLET PO SCH (07:00)
[2017-11-22 16:37] VITALS: BP 117/88
[2017-11-22] MEDS: QUEtiapine FUMARATE 200 MG TABLET PO SCH (20:26)
[2017-11-23] MEDS: LEVOTHYROXINE SODIUM 50 MCG TABLET PO SCH (07:01)
[2017-11-23 08:14] VITALS: BP 120/82
[2017-11-23] MEDS: QUEtiapine FUMARATE 200 MG TABLET PO SCH (20:39)
[2017-11-24] MEDS: LEVOTHYROXINE SODIUM 50 MCG TABLET PO SCH (06:50)
[2017-11-24 08:15] VITALS: BP 128/74
[2017-11-24] MEDS: QUEtiapine FUMARATE 200 MG TABLET PO SCH (20:40)
[2017-11-25] MEDS: LEVOTHYROXINE SODIUM 50 MCG TABLET PO SCH (07:00)
[2017-11-25] MEDS: QUEtiapine FUMARATE 200 MG TABLET PO SCH (21:09)
[2017-11-26] MEDS: LEVOTHYROXINE SODIUM 50 MCG TABLET PO SCH (06:40)
[2017-11-26 09:03] LABS: EOSINOPHILS % (AUTO) 0.1 % (1.0-6.0); HEMATOCRIT 39.9 % (36-46); HEMOGLOBIN 13.8 g/dL (12.0-16.0); LYMPHOCYTES # (AUTO) 2.5 K/uL (1.0-4.8); LYMPHOCYTES % (AUTO) 42.9 % (22.0-44.0); MEAN CORPUSCULAR HEMOGLOBIN 31.5 pg (26.0-34.0); MEAN CORPUSCULAR HGB CONC 34.7 G/dL (31.0-37.0); MEAN CORPUSCULAR VOLUME 91 fL (80-100); MONOCYTES # (AUTO) 0.5 K/uL (0.1-1.0); MONOCYTES % (AUTO) 8.6 % (2.0-9.0); NEUTROPHILS # (AUTO) 2.7 K/uL (1.8-7.7); NEUTROPHILS % (AUTO) 47.4 % (40.0-70.0); PLATELET COUNT (AUTO) 153 K/uL (150-450); RED CELL DISTRIBUTION WIDTH 12.8 % (11.5-14.5)
[2017-11-26 09:23] LABS: ANION GAP 11 mmol/L (8-16); CALCIUM, TOTAL 8.9 mg/dL (8.8-10.5); CARBON DIOXIDE 26 mmol/L (22-29); CHLORIDE 106 mmol/L (98-107); CREATININE 0.74 mg/dL (0.60-1.30); GLOMERULAR FILTR. RATE CALC > 60 mL/min (>60); GLUCOSE,RANDOM 83 mg/dL (70-110); POTASSIUM 3.5 mmol/L (3.5-5.1); SODIUM SERUM 143 mmol/L (136-145); UREA NITROGEN, BLOOD 11 mg/dL (7-18)
[2017-11-26] MEDS: QUEtiapine FUMARATE 200 MG TABLET PO SCH (20:43)
[2017-11-27] MEDS: LEVOTHYROXINE SODIUM 50 MCG TABLET PO SCH (07:02)
[2017-11-27] MEDS: QUEtiapine FUMARATE 200 MG TABLET PO SCH (20:31)
[2017-11-28] MEDS: LEVOTHYROXINE SODIUM 50 MCG TABLET PO SCH (07:03)
[2017-11-28 17:27] VITALS: BP 116/75
[2017-11-28] MEDS: QUEtiapine FUMARATE 200 MG TABLET PO SCH (20:19)
[2017-11-29] MEDS: LEVOTHYROXINE SODIUM 50 MCG TABLET PO SCH (06:55)
[2017-11-29 08:21] VITALS: BP 104/68
[2017-11-29] MEDS: QUEtiapine FUMARATE 200 MG TABLET PO SCH (21:53)
[2017-11-30] MEDS: LEVOTHYROXINE SODIUM 50 MCG TABLET PO SCH (06:53)
[2017-11-30] MEDS: BENZOYL PEROXIDE 5% TP PRN (16:24)
[2017-11-30] MEDS: QUEtiapine FUMARATE 200 MG TABLET PO SCH (20:38)
[2017-12-01] MEDS: LEVOTHYROXINE SODIUM 50 MCG TABLET PO SCH (06:50)
[2017-12-01] MEDS: QUEtiapine FUMARATE 200 MG TABLET PO SCH (21:40)
[2017-12-02] MEDS: LEVOTHYROXINE SODIUM 50 MCG TABLET PO SCH (07:00)
[2017-12-02 08:22] VITALS: BP 112/62
[2017-12-02] MEDS: BENZOYL PEROXIDE 5% TP PRN (15:10)
[2017-12-02] MEDS: QUEtiapine FUMARATE 200 MG TABLET PO SCH (20:27)
[2017-12-03] MEDS: LEVOTHYROXINE SODIUM 50 MCG TABLET PO SCH (06:50)
[2017-12-03 08:15] VITALS: BP 118/89
[2017-12-03] MEDS ORDERED: LORazepam 2 MG/ML VIAL ONE (15:39)
[2017-12-03] MEDS ORDERED: DiphenhydrAMINE HCL 50 MG/ML VIAL ONE (15:39)
[2017-12-03] MEDS ORDERED: LORazepam 2 MG/ML VIAL IM ONE (15:45)
[2017-12-03] MEDS ORDERED: HALOPERIDOL LACTATE 5 MG/ML VIAL IM ONE (15:45)
[2017-12-03] MEDS ORDERED: DiphenhydrAMINE HCL 50 MG/ML VIAL IM ONE (15:45)
[2017-12-03 17:35] VITALS: BP 110/68
[2017-12-03] MEDS: QUEtiapine FUMARATE 200 MG TABLET PO SCH (21:00)
[2017-12-04] MEDS: LEVOTHYROXINE SODIUM 50 MCG TABLET PO SCH (06:44)
[2017-12-04] MEDS: LORazepam 2 MG TABLET PO PRN (13:02)
[2017-12-04] MEDS: QUEtiapine FUMARATE 200 MG TABLET PO SCH (20:49)
[2017-12-05] MEDS: LEVOTHYROXINE SODIUM 50 MCG TABLET PO SCH (06:55)
[2017-12-05 17:24] VITALS: BP 115/72
[2017-12-05] MEDS: QUEtiapine FUMARATE 200 MG TABLET PO SCH (20:30)
[2017-12-06] MEDS: LEVOTHYROXINE SODIUM 50 MCG TABLET PO SCH (06:58)
[2017-12-06 08:13] VITALS: BP 126/72
[2017-12-06 16:44] VITALS: BP 130/82
[2017-12-06] MEDS: QUEtiapine FUMARATE 200 MG TABLET PO SCH (20:21)
[2017-12-07] MEDS: LEVOTHYROXINE SODIUM 50 MCG TABLET PO SCH (06:58)
[2017-12-07] MEDS: BENZOYL PEROXIDE 5% TP PRN (11:38)
[2017-12-07 16:22] VITALS: BP 122/76
[2017-12-07] MEDS: QUEtiapine FUMARATE 200 MG TABLET PO SCH (21:53)
[2017-12-08] MEDS: LEVOTHYROXINE SODIUM 50 MCG TABLET PO SCH (06:51)
[2017-12-08] MEDS: BENZOYL PEROXIDE 5% TP PRN (12:24)
[2017-12-08] MEDS ORDERED: DiphenhydrAMINE HCL 50 MG/ML VIAL ONE (14:52)
[2017-12-08] MEDS ORDERED: LORazepam 2 MG/ML VIAL ONE (14:52)
[2017-12-08] MEDS ORDERED: DiphenhydrAMINE HCL 50 MG/ML VIAL IM ONE (15:00)
[2017-12-08] MEDS ORDERED: HALOPERIDOL LACTATE 5 MG/ML VIAL IM ONE (15:00)
[2017-12-08] MEDS ORDERED: LORazepam 2 MG/ML VIAL IM ONE (15:00)
[2017-12-08] MEDS: QUEtiapine FUMARATE 200 MG TABLET PO SCH (21:58)
[2017-12-09] MEDS: LEVOTHYROXINE SODIUM 50 MCG TABLET PO SCH (06:47)
[2017-12-09 08:00] VITALS: BP 124/78
[2017-12-09] MEDS: DIVALPROEX SODIUM 500 MG DR TABLET PO SCH (12:30)
[2017-12-09 16:00] VITALS: BP 117/65
[2017-12-09] MEDS: QUEtiapine FUMARATE 200 MG TABLET PO SCH (20:36)
[2017-12-10] MEDS: LEVOTHYROXINE SODIUM 50 MCG TABLET PO SCH (06:30)
[2017-12-10] MEDS: DIVALPROEX SODIUM 500 MG DR TABLET PO SCH ×2 (09:00→10:12)
[2017-12-10] MEDS: QUEtiapine FUMARATE 25 MG TABLET PO SCH ×2 (10:11→16:12)
[2017-12-10] MEDS ORDERED: HALOPERIDOL LACTATE 5 MG/ML VIAL IM PRN (11:00)
[2017-12-10] MEDS: QUEtiapine FUMARATE 200 MG TABLET PO SCH (20:26)
[2017-12-11] MEDS: LEVOTHYROXINE SODIUM 50 MCG TABLET PO SCH (06:45)
[2017-12-11] MEDS: DIVALPROEX SODIUM 500 MG DR TABLET PO SCH (09:36)
[2017-12-11] MEDS: QUEtiapine FUMARATE 25 MG TABLET PO SCH ×2 (09:36→17:00)
[2017-12-11] MEDS: BENZOYL PEROXIDE 5% TP PRN (10:25)
[2017-12-11] MEDS: QUEtiapine FUMARATE 200 MG TABLET PO SCH (20:07)
[2017-12-11] MEDS ORDERED: HALOPERIDOL LACTATE 5 MG/ML VIAL IM PRN (21:30)
[2017-12-12] MEDS: LEVOTHYROXINE SODIUM 50 MCG TABLET PO SCH (06:34)
[2017-12-12] MEDS: DIVALPROEX SODIUM 500 MG DR TABLET PO SCH (10:57)
[2017-12-12] MEDS: QUEtiapine FUMARATE 200 MG TABLET PO SCH ×3 (10:57→18:25)
[2017-12-13] MEDS: LEVOTHYROXINE SODIUM 50 MCG TABLET PO SCH (06:39)
[2017-12-13] MEDS: DIVALPROEX SODIUM 500 MG DR TABLET PO SCH (10:07)
[2017-12-13] MEDS: QUEtiapine FUMARATE 200 MG TABLET PO SCH ×3 (10:07→21:15)
[2017-12-14] MEDS: LEVOTHYROXINE SODIUM 50 MCG TABLET PO SCH (06:38)
[2017-12-14] MEDS: DIVALPROEX SODIUM 500 MG DR TABLET PO SCH (08:47)
[2017-12-14] MEDS: QUEtiapine FUMARATE 200 MG TABLET PO SCH ×3 (08:47→20:53)
[2017-12-14 09:06] VITALS: BP 118/68
[2017-12-15] MEDS: LEVOTHYROXINE SODIUM 50 MCG TABLET PO SCH (07:02)
[2017-12-15] MEDS: DIVALPROEX SODIUM 500 MG DR TABLET PO SCH (08:11)
[2017-12-15] MEDS: QUEtiapine FUMARATE 200 MG TABLET PO SCH ×3 (08:11→20:16)
[2017-12-15 08:40] VITALS: BP 112/68
[2017-12-16] MEDS: LEVOTHYROXINE SODIUM 50 MCG TABLET PO SCH (07:06)
[2017-12-16 08:21] VITALS: BP 118/64
[2017-12-16] MEDS: DIVALPROEX SODIUM 500 MG DR TABLET PO SCH (11:01)
[2017-12-16] MEDS: QUEtiapine FUMARATE 200 MG TABLET PO SCH ×3 (11:01→21:20)
[2017-12-17] MEDS: LEVOTHYROXINE SODIUM 50 MCG TABLET PO SCH (06:40)
[2017-12-17 08:10] VITALS: BP 101/64
[2017-12-17] MEDS: DIVALPROEX SODIUM 500 MG DR TABLET PO SCH (08:53)
[2017-12-17] MEDS: QUEtiapine FUMARATE 200 MG TABLET PO SCH ×3 (08:53→20:21)
[2017-12-17] MEDS: ZOLPIDEM TARTRATE 10 MG TABLET PO PRN (20:22)
[2017-12-18] MEDS: LEVOTHYROXINE SODIUM 50 MCG TABLET PO SCH (06:45)
[2017-12-18 08:21] VITALS: BP 130/68
[2017-12-18] MEDS: QUEtiapine FUMARATE 200 MG TABLET PO SCH ×3 (09:30→20:43)
[2017-12-18] MEDS: DIVALPROEX SODIUM 500 MG DR TABLET PO SCH (09:30)
[2017-12-18 16:13] VITALS: BP 104/70
[2017-12-19] MEDS: LEVOTHYROXINE SODIUM 50 MCG TABLET PO SCH (06:40)
[2017-12-19] MEDS: DIVALPROEX SODIUM 500 MG DR TABLET PO SCH (09:22)
[2017-12-19] MEDS: QUEtiapine FUMARATE 200 MG TABLET PO SCH ×3 (09:22→20:03)
[2017-12-19 16:45] VITALS: BP 116/74
[2017-12-19] MEDS: LORazepam 2 MG TABLET PO PRN (17:40)
[2017-12-20] MEDS: LEVOTHYROXINE SODIUM 50 MCG TABLET PO SCH (07:03)
[2017-12-20] MEDS: QUEtiapine FUMARATE 200 MG TABLET PO SCH ×3 (09:04→20:17)
[2017-12-20] MEDS: DIVALPROEX SODIUM 500 MG DR TABLET PO SCH (09:04)
[2017-12-20 09:08] VITALS: BP 104/62
[2017-12-20] MEDS: LORazepam 2 MG TABLET PO PRN (18:01)
[2017-12-20 18:22] VITALS: BP 112/64
[2017-12-20] MEDS: ZOLPIDEM TARTRATE 10 MG TABLET PO PRN (23:13)
[2017-12-21] MEDS: LEVOTHYROXINE SODIUM 50 MCG TABLET PO SCH (06:33)
[2017-12-21 08:31] VITALS: BP 121/80
[2017-12-21] MEDS: DIVALPROEX SODIUM 500 MG DR TABLET PO SCH (09:06)
[2017-12-21] MEDS: QUEtiapine FUMARATE 200 MG TABLET PO SCH ×3 (09:06→20:09)
[2017-12-21 16:28] VITALS: BP 126/69
[2017-12-21] MEDS: LORazepam 2 MG TABLET PO PRN (18:02)
[2017-12-21] MEDS: ZOLPIDEM TARTRATE 10 MG TABLET PO PRN (21:07)
[2017-12-22] MEDS: LORazepam 2 MG TABLET PO PRN (00:43)
[2017-12-22 00:44] VITALS: BP 140/74
[2017-12-22] MEDS: LEVOTHYROXINE SODIUM 50 MCG TABLET PO SCH (06:42)
[2017-12-22 06:58] LABS: BASOPHILS % (AUTO) 0.4 % (0.0-2.0); EOSINOPHILS % (AUTO) 0.1 % (1.0-6.0); HEMATOCRIT 37.8 % (36-46); LYMPHOCYTES # (AUTO) 2.4 K/uL (1.0-4.8); LYMPHOCYTES % (AUTO) 45.2 % (22.0-44.0); MEAN CORPUSCULAR HGB CONC 34.3 G/dL (31.0-37.0); MEAN CORPUSCULAR VOLUME 90 fL (80-100); MONOCYTES # (AUTO) 0.5 K/uL (0.1-1.0); MONOCYTES % (AUTO) 9.4 % (2.0-9.0); NEUTROPHILS # (AUTO) 2.3 K/uL (1.8-7.7); NEUTROPHILS % (AUTO) 44.9 % (40.0-70.0); PLATELET COUNT (AUTO) 147 K/uL (150-450); RED BLOOD CELL COUNT(AUTO) 4.18 MIL/uL (4.00-5.20); RED CELL DISTRIBUTION WIDTH 12.6 % (11.5-14.5)
[2017-12-22 07:22] LABS: ANION GAP 10 mmol/L (8-16); CALCIUM, TOTAL 8.6 mg/dL (8.8-10.5); CARBON DIOXIDE 25 mmol/L (22-29); CHLORIDE 105 mmol/L (98-107); CHOL/HDL RATIO 3.5 (3.9-5.7); CHOLESTEROL 135 mg/dL (131-200); CREATININE 0.61 mg/dL (0.60-1.30); GLOMERULAR FILTR. RATE CALC > 60 mL/min (>60); GLUCOSE,RANDOM 96 mg/dL (70-110); HDL CHOLESTEROL 39 mg/dL (40-60); LDL CHOL (CALC.) 63 mg/dL (0-130); PHOSPHORUS 4.2 mg/dL (2.5-4.9); POTASSIUM 3.7 mmol/L (3.5-5.1); SODIUM SERUM 140 mmol/L (136-145); THYROID STIMULATING HORMONE 6.81 uIU/mL (0.36-3.74); TRIGLYCERIDES 166 mg/dL (15-150); UREA NITROGEN, BLOOD 14 mg/dL (7-18); VALPROIC ACID 39 mcg/mL (50-100)
[2017-12-22] MEDS: QUEtiapine FUMARATE 200 MG TABLET PO SCH ×3 (08:41→20:18)
[2017-12-22] MEDS: DIVALPROEX SODIUM 500 MG DR TABLET PO SCH (08:41)
[2017-12-22 12:34] VITALS: BP 136/69
[2017-12-22] MEDS: ZOLPIDEM TARTRATE 10 MG TABLET PO PRN (21:24)
[2017-12-23] MEDS: LORazepam 2 MG TABLET PO PRN ×3 (00:35→20:46)
[2017-12-23] MEDS: LEVOTHYROXINE SODIUM 50 MCG TABLET PO SCH (06:50)
[2017-12-23 08:00] VITALS: BP 120/70
[2017-12-23] MEDS: DIVALPROEX SODIUM 500 MG DR TABLET PO SCH (08:37)
[2017-12-23] MEDS: CHOLECALCIFEROL (VIT D3) 1,000 UNITS TABLET PO SCH (09:00)
[2017-12-23] MEDS: QUEtiapine FUMARATE 200 MG TABLET PO SCH ×2 (12:29→20:02)
[2017-12-23] MEDS: BENZOCAINE/MENTHOL LOZENGE [8 LOZENGES/PACKET] MM PRN (14:31)
[2017-12-24] MEDS: BENZOCAINE/MENTHOL LOZENGE [8 LOZENGES/PACKET] MM PRN ×3 (03:28→22:15)
[2017-12-24] MEDS: LORazepam 2 MG TABLET PO PRN ×2 (05:22→16:20)
[2017-12-24] MEDS: LEVOTHYROXINE SODIUM 100 MCG TABLET PO SCH (06:54)
[2017-12-24] MEDS: DIVALPROEX SODIUM 500 MG DR TABLET PO SCH (08:29)
[2017-12-24] MEDS: CHOLECALCIFEROL (VIT D3) 1,000 UNITS TABLET PO SCH (08:31)
[2017-12-24 09:20] VITALS: BP 123/82
[2017-12-24] MEDS: QUEtiapine FUMARATE 200 MG TABLET PO SCH ×2 (12:07→20:34)
[2017-12-24 16:30] VITALS: BP 113/67
[2017-12-24] MEDS: MAGNESIUM OXIDE 400 MG TABLET PO SCH ×2 (16:52→17:00)
[2017-12-24] MEDS: ZOLPIDEM TARTRATE 10 MG TABLET PO PRN (20:34)
[2017-12-25] MEDS: LORazepam 2 MG TABLET PO PRN ×2 (02:14→18:43)
[2017-12-25] MEDS: BENZOCAINE/MENTHOL LOZENGE [8 LOZENGES/PACKET] MM PRN ×3 (06:00→15:45)
[2017-12-25] MEDS: LEVOTHYROXINE SODIUM 100 MCG TABLET PO SCH (06:55)
[2017-12-25 08:50] VITALS: BP 132/86
[2017-12-25] MEDS: CHOLECALCIFEROL (VIT D3) 1,000 UNITS TABLET PO SCH (08:52)
[2017-12-25] MEDS: MAGNESIUM OXIDE 400 MG TABLET PO SCH ×2 (08:52→16:35)
[2017-12-25] MEDS: DIVALPROEX SODIUM 500 MG DR TABLET PO SCH (08:52)
[2017-12-25] MEDS: QUEtiapine FUMARATE 200 MG TABLET PO SCH ×2 (14:11→20:29)
[2017-12-25] MEDS: SODIUM CHLORIDE 0.65% 44 ML NASAL SPRAY NASAL SCH ×2 (16:35→20:29)
[2017-12-25] MEDS: ZOLPIDEM TARTRATE 10 MG TABLET PO PRN (20:30)
[2017-12-26] MEDS: LEVOTHYROXINE SODIUM 100 MCG TABLET PO SCH (06:57)
[2017-12-26 08:00] VITALS: BP 96/78
[2017-12-26] MEDS: SODIUM CHLORIDE 0.65% 44 ML NASAL SPRAY NASAL SCH ×4 (09:00→20:05)
[2017-12-26] MEDS: MAGNESIUM OXIDE 400 MG TABLET PO SCH ×2 (09:00→17:39)
[2017-12-26] MEDS: CHOLECALCIFEROL (VIT D3) 1,000 UNITS TABLET PO SCH (09:00)
[2017-12-26] MEDS: DIVALPROEX SODIUM 500 MG DR TABLET PO SCH (11:28)
[2017-12-26] MEDS: QUEtiapine FUMARATE 200 MG TABLET PO SCH ×2 (13:08→20:05)
[2017-12-27] MEDS: LEVOTHYROXINE SODIUM 100 MCG TABLET PO SCH (06:38)
[2017-12-27 08:25] VITALS: BP 104/57
[2017-12-27] MEDS: SODIUM CHLORIDE 0.65% 44 ML NASAL SPRAY NASAL SCH ×4 (09:00→20:02)
[2017-12-27] MEDS: MAGNESIUM OXIDE 400 MG TABLET PO SCH ×2 (09:00→17:00)
[2017-12-27] MEDS: CHOLECALCIFEROL (VIT D3) 1,000 UNITS TABLET PO SCH (09:00)
[2017-12-27] MEDS: DIVALPROEX SODIUM 500 MG DR TABLET PO SCH (11:31)
[2017-12-27] MEDS: LORazepam 2 MG TABLET PO PRN (12:14)
[2017-12-27] MEDS: QUEtiapine FUMARATE 200 MG TABLET PO SCH ×2 (12:21→19:59)
[2017-12-28] MEDS: LEVOTHYROXINE SODIUM 100 MCG TABLET PO SCH (06:58)
[2017-12-28] MEDS: DIVALPROEX SODIUM 500 MG DR TABLET PO SCH (08:23)
[2017-12-28] MEDS: SODIUM CHLORIDE 0.65% 44 ML NASAL SPRAY NASAL SCH ×4 (09:00→20:24)
[2017-12-28] MEDS: MAGNESIUM OXIDE 400 MG TABLET PO SCH ×2 (09:00→16:57)
[2017-12-28] MEDS: CHOLECALCIFEROL (VIT D3) 1,000 UNITS TABLET PO SCH (09:00)
[2017-12-28 10:08] VITALS: BP 113/76
[2017-12-28] MEDS: QUEtiapine FUMARATE 200 MG TABLET PO SCH ×2 (13:49→20:24)
[2017-12-29] MEDS: LEVOTHYROXINE SODIUM 100 MCG TABLET PO SCH (06:52)
[2017-12-29] MEDS: SODIUM CHLORIDE 0.65% 44 ML NASAL SPRAY NASAL SCH ×4 (09:00→21:00)
[2017-12-29 09:16] VITALS: BP 128/72
[2017-12-29] MEDS: DIVALPROEX SODIUM 500 MG DR TABLET PO SCH (09:42)
[2017-12-29] MEDS: CHOLECALCIFEROL (VIT D3) 1,000 UNITS TABLET PO SCH (09:42)
[2017-12-29] MEDS: QUEtiapine FUMARATE 200 MG TABLET PO SCH ×2 (12:34→20:51)
[2017-12-30] MEDS: LEVOTHYROXINE SODIUM 100 MCG TABLET PO SCH (06:48)
[2017-12-30] MEDS: MAGNESIUM OXIDE 400 MG TABLET PO SCH ×2 (09:00→09:19)
[2017-12-30] MEDS: CHOLECALCIFEROL (VIT D3) 1,000 UNITS TABLET PO SCH ×2 (09:00→09:17)
[2017-12-30 09:14] VITALS: BP 130/65
[2017-12-30] MEDS: DIVALPROEX SODIUM 500 MG DR TABLET PO SCH (09:17)
[2017-12-30] MEDS: SODIUM CHLORIDE 0.65% 44 ML NASAL SPRAY NASAL SCH ×4 (09:17→20:33)
[2017-12-30] MEDS: QUEtiapine FUMARATE 200 MG TABLET PO SCH ×2 (12:34→20:33)
[2017-12-30 16:42] VITALS: BP 106/79
[2017-12-31] MEDS: LEVOTHYROXINE SODIUM 100 MCG TABLET PO SCH (06:30)
[2017-12-31] MEDS: CHOLECALCIFEROL (VIT D3) 1,000 UNITS TABLET PO SCH (08:40)
[2017-12-31] MEDS: DIVALPROEX SODIUM 500 MG DR TABLET PO SCH (08:40)
[2017-12-31] MEDS: SODIUM CHLORIDE 0.65% 44 ML NASAL SPRAY NASAL SCH ×3 (08:40→17:00)
[2017-12-31] MEDS: QUEtiapine FUMARATE 200 MG TABLET PO SCH ×2 (12:51→20:09)
[2017-12-31 20:31] VITALS: BP 109/66
[2018-01-01] MEDS: LEVOTHYROXINE SODIUM 100 MCG TABLET PO SCH (06:28)
[2018-01-01] MEDS: MAGNESIUM OXIDE 400 MG TABLET PO SCH (09:00)
[2018-01-01] MEDS: CHOLECALCIFEROL (VIT D3) 1,000 UNITS TABLET PO SCH (09:00)
[2018-01-01] MEDS: DIVALPROEX SODIUM 500 MG DR TABLET PO SCH (09:23)
[2018-01-01] MEDS: QUEtiapine FUMARATE 200 MG TABLET PO SCH ×2 (13:48→20:50)
[2018-01-02] MEDS: LEVOTHYROXINE SODIUM 100 MCG TABLET PO SCH (06:36)
[2018-01-02] MEDS: CHOLECALCIFEROL (VIT D3) 1,000 UNITS TABLET PO SCH (08:29)
[2018-01-02] MEDS: DIVALPROEX SODIUM 500 MG DR TABLET PO SCH (08:29)
[2018-01-02] MEDS: MAGNESIUM OXIDE 400 MG TABLET PO SCH (08:30)
[2018-01-02] MEDS: QUEtiapine FUMARATE 200 MG TABLET PO SCH ×2 (14:19→20:57)
[2018-01-02 16:41] VITALS: BP 116/69
[2018-01-03] MEDS: LEVOTHYROXINE SODIUM 100 MCG TABLET PO SCH (06:42)
[2018-01-03] MEDS: CHOLECALCIFEROL (VIT D3) 1,000 UNITS TABLET PO SCH (08:26)
[2018-01-03] MEDS: DIVALPROEX SODIUM 500 MG DR TABLET PO SCH (08:26)
[2018-01-03 08:33] VITALS: BP 108/68
[2018-01-03] MEDS: QUEtiapine FUMARATE 200 MG TABLET PO SCH ×2 (12:21→21:32)
[2018-01-04] MEDS: LEVOTHYROXINE SODIUM 100 MCG TABLET PO SCH (07:02)
[2018-01-04 08:32] VITALS: BP 104/68
[2018-01-04] MEDS: CHOLECALCIFEROL (VIT D3) 1,000 UNITS TABLET PO SCH (09:49)
[2018-01-04] MEDS: DIVALPROEX SODIUM 500 MG DR TABLET PO SCH (09:49)
[2018-01-04] MEDS: QUEtiapine FUMARATE 200 MG TABLET PO SCH ×2 (12:49→20:20)
[2018-01-04 18:35] VITALS: BP 110/71
[2018-01-05] MEDS: LEVOTHYROXINE SODIUM 100 MCG TABLET PO SCH (06:36)
[2018-01-05] MEDS: CHOLECALCIFEROL (VIT D3) 1,000 UNITS TABLET PO SCH (09:00)
[2018-01-05] MEDS: DIVALPROEX SODIUM 500 MG DR TABLET PO SCH (10:29)
[2018-01-05] MEDS: QUEtiapine FUMARATE 200 MG TABLET PO SCH ×2 (13:52→20:27)
[2018-01-05 16:00] VITALS: BP 110/68
[2018-01-05] MEDS ORDERED: HALOPERIDOL LACTATE 5 MG/ML VIAL IM ONE (17:45)
[2018-01-05] MEDS ORDERED: LORazepam 2 MG/ML VIAL IM ONE (17:45)
[2018-01-05] MEDS ORDERED: DiphenhydrAMINE HCL 50 MG/ML VIAL IM ONE (17:45)
[2018-01-06] MEDS: LEVOTHYROXINE SODIUM 100 MCG TABLET PO SCH (07:16)
[2018-01-06] MEDS: CHOLECALCIFEROL (VIT D3) 1,000 UNITS TABLET PO SCH (09:00)
[2018-01-06] MEDS: DIVALPROEX SODIUM 500 MG DR TABLET PO SCH (09:54)
[2018-01-06] MEDS: QUEtiapine FUMARATE 200 MG TABLET PO SCH ×2 (13:00→20:15)
[2018-01-06 18:09] VITALS: BP 112/72
[2018-01-06] MEDS: ZOLPIDEM TARTRATE 10 MG TABLET PO PRN (22:42)
[2018-01-07] MEDS: LEVOTHYROXINE SODIUM 100 MCG TABLET PO SCH (06:53)
[2018-01-07] MEDS: DIVALPROEX SODIUM 500 MG DR TABLET PO SCH (07:50)
[2018-01-07] MEDS: CHOLECALCIFEROL (VIT D3) 1,000 UNITS TABLET PO SCH (07:50)
[2018-01-07 08:44] VITALS: BP 126/74
[2018-01-07] MEDS: QUEtiapine FUMARATE 200 MG TABLET PO SCH ×2 (12:59→21:10)
[2018-01-07 16:35] VITALS: BP 125/76
[2018-01-08] MEDS: LEVOTHYROXINE SODIUM 100 MCG TABLET PO SCH (06:54)
[2018-01-08] MEDS: DIVALPROEX SODIUM 500 MG DR TABLET PO SCH (08:12)
[2018-01-08] MEDS: CHOLECALCIFEROL (VIT D3) 1,000 UNITS TABLET PO SCH (09:00)
[2018-01-08] MEDS: QUEtiapine FUMARATE 200 MG TABLET PO SCH ×2 (13:02→21:00)
[2018-01-09] MEDS: LEVOTHYROXINE SODIUM 100 MCG TABLET PO SCH (06:53)
[2018-01-09] MEDS: DIVALPROEX SODIUM 500 MG DR TABLET PO SCH (08:56)
[2018-01-09] MEDS: CHOLECALCIFEROL (VIT D3) 1,000 UNITS TABLET PO SCH (09:00)
[2018-01-09 10:02] VITALS: BP 120/93
[2018-01-09] MEDS: QUEtiapine FUMARATE 200 MG TABLET PO SCH ×2 (13:02→20:19)
[2018-01-09 16:59] VITALS: BP 111/76
[2018-01-10] MEDS: LEVOTHYROXINE SODIUM 100 MCG TABLET PO SCH (06:50)
[2018-01-10 08:58] VITALS: BP 111/65
[2018-01-10] MEDS: DIVALPROEX SODIUM 500 MG DR TABLET PO SCH (08:58)
[2018-01-10] MEDS: CHOLECALCIFEROL (VIT D3) 1,000 UNITS TABLET PO SCH (09:00)
[2018-01-10] MEDS: QUEtiapine FUMARATE 200 MG TABLET PO SCH ×2 (12:37→22:12)
[2018-01-10 16:00] VITALS: BP 102/67
[2018-01-11] MEDS: LEVOTHYROXINE SODIUM 100 MCG TABLET PO SCH (06:56)
[2018-01-11] MEDS: DIVALPROEX SODIUM 500 MG DR TABLET PO SCH (08:50)
[2018-01-11] MEDS: CHOLECALCIFEROL (VIT D3) 1,000 UNITS TABLET PO SCH (09:00)
[2018-01-11] MEDS: QUEtiapine FUMARATE 200 MG TABLET PO SCH ×2 (12:25→20:11)
[2018-01-11 18:46] VITALS: BP 134/79
[2018-01-12] MEDS: LEVOTHYROXINE SODIUM 100 MCG TABLET PO SCH (06:55)
[2018-01-12 08:45] VITALS: BP 101/63
[2018-01-12] MEDS: CHOLECALCIFEROL (VIT D3) 1,000 UNITS TABLET PO SCH (09:30)
[2018-01-12] MEDS: DIVALPROEX SODIUM 500 MG DR TABLET PO SCH (09:30)
[2018-01-12] MEDS: QUEtiapine FUMARATE 200 MG TABLET PO SCH ×2 (12:30→20:35)
[2018-01-12 17:22] VITALS: BP 111/72
[2018-01-13] MEDS: LEVOTHYROXINE SODIUM 100 MCG TABLET PO SCH (07:04)
[2018-01-13] MEDS: CHOLECALCIFEROL (VIT D3) 1,000 UNITS TABLET PO SCH (08:19)
[2018-01-13] MEDS: DIVALPROEX SODIUM 500 MG DR TABLET PO SCH (08:19)
[2018-01-13] MEDS: QUEtiapine FUMARATE 200 MG TABLET PO SCH ×2 (13:16→20:11)
[2018-01-13 16:19] VITALS: BP 104/66
[2018-01-14 06:05] VITALS: BP 103/61
[2018-01-14] MEDS: LEVOTHYROXINE SODIUM 100 MCG TABLET PO SCH (07:02)
[2018-01-14] MEDS: CHOLECALCIFEROL (VIT D3) 1,000 UNITS TABLET PO SCH (09:59)
[2018-01-14] MEDS: DIVALPROEX SODIUM 500 MG DR TABLET PO SCH (09:59)
[2018-01-14] MEDS: QUEtiapine FUMARATE 200 MG TABLET PO SCH ×2 (12:47→21:14)
[2018-01-15] MEDS: LEVOTHYROXINE SODIUM 100 MCG TABLET PO SCH (06:54)
[2018-01-15] MEDS: CHOLECALCIFEROL (VIT D3) 1,000 UNITS TABLET PO SCH (11:07)
[2018-01-15] MEDS: DIVALPROEX SODIUM 500 MG DR TABLET PO SCH (11:07)
[2018-01-15] MEDS: QUEtiapine FUMARATE 200 MG TABLET PO SCH ×2 (14:06→21:36)
[2018-01-15 17:39] VITALS: BP 112/68
[2018-01-16] MEDS: LEVOTHYROXINE SODIUM 100 MCG TABLET PO SCH (06:58)
[2018-01-16] MEDS ORDERED: DIVA500T35 PO (08:08)
[2018-01-16] MEDS ORDERED: VITAD1000 PO (08:08)
[2018-01-16] MEDS ORDERED: QUET200T PO (08:08)
[2018-01-16] MEDS: DIVALPROEX SODIUM 500 MG DR TABLET PO SCH (09:32)
[2018-01-16] MEDS: CHOLECALCIFEROL (VIT D3) 1,000 UNITS TABLET PO SCH (09:36)
[2018-01-16] MEDS: QUEtiapine FUMARATE 200 MG TABLET PO SCH (12:05)
== END 2018-01-16 15:45 | disposition home or self-care (01) | DRG 753 ==
LOC: EMS 20:26 → 3EC 10-16 03:30 → 3EI 01-13 20:28
PROVIDERS: ADMIT Psychiatry & Neurology Child & Adolescent Psychiatry; ATTEND Psychiatry & Neurology Child & Adolescent Psychiatry
DX: F31.2 Bipolar disorder, current episode manic severe with psychotic features (principal); Z91.19 Patient's noncompliance with other medical treatment and regimen; E55.9 Vitamin D deficiency, unspecified; E03.9 Hypothyroidism, unspecified; F41.9 Anxiety disorder, unspecified; F17.210 Nicotine dependence, cigarettes, uncomplicated; F12.90 Cannabis use, unspecified, uncomplicated; G47.00 Insomnia, unspecified; K59.00 Constipation, unspecified; L70.9 Acne, unspecified; Z81.8 Family history of other mental and behavioral disorders; Z72.89 Other problems related to lifestyle; Z79.899 Other long term (current) drug therapy; Z71.41 Alcohol abuse counseling and surveillance of alcoholic; Z71.51 Drug abuse counseling and surveillance of drug abuser; Z71.6 Tobacco abuse counseling
CPT/HCPCS: 82306; 83735; 84100; 84443; 87081; 96372; 99291; G0480; J1200; J1630; J2060

== ENCOUNTER 2018-10-26 02:18 | Inpatient (IN) | payer MEDICAID, OTHER ==
[~2018-10-26] VITALS: Ht 162.6 cm; Wt 54.7 kg
[~2018-10-26 02:18] MED LIST changes: +DIVA-78 PO; +VITAD1000 PO
[2018-10-26 05:03] LABS: BASOPHILS % (AUTO) 0.7 % (0.0-2.0); EOSINOPHILS % (AUTO) 0.2 % (1.0-6.0); HEMATOCRIT 38.4 % (36-46); LYMPHOCYTES # (AUTO) 2.3 K/uL (1.0-4.8); LYMPHOCYTES % (AUTO) 33.9 % (22.0-44.0); MEAN CORPUSCULAR HEMOGLOBIN 29.2 pg (26.0-34.0); MEAN CORPUSCULAR HGB CONC 33.7 G/dL (31.0-37.0); MEAN CORPUSCULAR VOLUME 87 fL (80-100); MONOCYTES # (AUTO) 0.6 K/uL (0.1-1.0); MONOCYTES % (AUTO) 8.5 % (2.0-9.0); NEUTROPHILS # (AUTO) 3.8 K/uL (1.8-7.7); NEUTROPHILS % (AUTO) 56.7 % (40.0-70.0); PLATELET COUNT (AUTO) 324 K/uL (150-450); RED BLOOD CELL COUNT(AUTO) 4.43 MIL/uL (4.00-5.20); RED CELL DISTRIBUTION WIDTH 15.6 % (11.5-14.5)
[2018-10-26 05:18] LABS: ANION GAP 13 mmol/L (8-16); CALCIUM, TOTAL 9.1 mg/dL (8.8-10.5); CARBON DIOXIDE 24 mmol/L (22-29); CHLORIDE 103 mmol/L (98-107); CREATININE 0.52 mg/dL (0.60-1.30); GLOMERULAR FILTR. RATE CALC > 60 mL/min (>60); GLUCOSE,RANDOM 92 mg/dL (70-110); POTASSIUM 3.2 mmol/L (3.5-5.1); SODIUM SERUM 140 mmol/L (136-145); UREA NITROGEN, BLOOD 11 mg/dL (7-18)
[2018-10-26 05:29] LABS: ALANINE AMINOTRANSFERASE 21 U/L (12-78); ALKALINE PHOSPHATASE 104 U/L (46-116); ASPARTATE AMINOTRANSFERASE 18 U/L (15-37); BILIRUBIN,TOTAL 0.5 mg/dL (0.1-1.0); TOTAL PROTEIN, SERUM 7.9 g/dL (6.4-8.2)
[2018-10-26 05:38] LABS: AMPHET/METH SCREEN,URINE POSITIVE (NEGATIVE); BARBITURATE SCREEN, URINE NEGATIVE (NEGATIVE); BENZODIAZEPINES SCREEN,URINE NEGATIVE (NEGATIVE); CANNABINOID SCREEN,URINE POSITIVE (NEGATIVE); COCAINE SCREEN,URINE NEGATIVE (NEGATIVE); METHADONE SCREEN, URINE NEGATIVE (NEGATIVE); OPIATE SCREEN,URINE POSITIVE (NEGATIVE)
[2018-10-26 05:39] LABS: PHENCYCLIDINE SCREEN,URINE NEGATIVE (NEGATIVE)
[2018-10-26] MEDS ORDERED: ZOLPIDEM TARTRATE 10 MG TABLET PO PRN (05:45)
[2018-10-26 06:20] LABS: HCG,QUANTITATIVE < 1 mIU/mL (0-6)
[2018-10-26] MEDS: LORazepam 2 MG TABLET PO PRN ×2 (07:59→08:00)
[2018-10-26] MEDS: HALOPERIDOL 5 MG TABLET PO PRN ×2 (07:59→08:00)
[2018-10-26 16:06] VITALS: BP 110/67
[2018-10-26] MEDS ORDERED: NICOTINE 14 MG/24 HOUR PATCH TD PRN (16:15)
[2018-10-26] MEDS ORDERED: MAGNESIUM HYDROXIDE SUSPENSION 30 ML UDCUP PO PRN (16:15)
[2018-10-26] MEDS ORDERED: ONDANSETRON HCL 4 MG TABLET PO PRN (16:15)
[2018-10-26] MEDS ORDERED: ACETAMINOPHEN 325 MG TABLET PO PRN (16:15)
[2018-10-26] MEDS ORDERED: DOCUSATE SODIUM 100 MG CAPSULE PO PRN (16:15)
[2018-10-26] MEDS ORDERED: ALBUTEROL SULFATE HFA 90 MCG/PUFF 8 GM INHALER IH PRN (16:15)
[2018-10-26] MEDS ORDERED: PETROLATUM,WHITE 71 GM JELLY TP PRN (16:15)
[2018-10-26] MEDS ORDERED: MAG HYDROX/AL HYDROX/SIMETH ES 30 ML SUSPENSION UDCUP PO PRN (16:15)
[2018-10-26] MEDS ORDERED: GuaiFENesin/D-METHORPHAN [SUGAR-FREE] 200-20MG/10 ML SYRUP UDCUP PO PRN (16:15)
[2018-10-26] MEDS ORDERED: LOPERAMIDE HCL 2 MG CAPSULE PO PRN (16:15)
[2018-10-26] MEDS ORDERED: IBUPROFEN 400 MG TABLET PO PRN (16:15)
[2018-10-26] MEDS ORDERED: CloNIDine HCL 0.1 MG TABLET PO PRN (16:15)
[2018-10-26] MEDS ORDERED: POTASSIUM CHLORIDE 20 MEQ ER TABLET PO ONE (16:45)
[2018-10-26 17:00] VITALS: BP 121/65
[2018-10-26 18:00] VITALS: BP 112/69
[2018-10-27 01:00] VITALS: BP 115/71
[2018-10-27 08:19] VITALS: BP 105/72
[2018-10-27] MEDS: QUEtiapine FUMARATE 200 MG TABLET PO SCH ×2 (14:33→20:12)
[2018-10-27 16:00] VITALS: BP 144/90
[2018-10-27] MEDS: DIVALPROEX SODIUM 500 MG DR TABLET PO SCH (20:11)
[2018-10-28 06:38] VITALS: BP 103/60
[2018-10-28] MEDS: LEVOTHYROXINE SODIUM 100 MCG TABLET PO SCH (06:49)
[2018-10-28 08:25] VITALS: BP 112/69
[2018-10-28] MEDS: QUEtiapine FUMARATE 200 MG TABLET PO SCH ×2 (09:03→21:07)
[2018-10-28] MEDS: CHOLECALCIFEROL (VIT D3) 1,000 UNITS TABLET PO SCH (09:03)
[2018-10-28] MEDS: LORazepam 2 MG TABLET PO PRN ×2 (13:16→17:32)
[2018-10-28 17:11] VITALS: BP 110/60
[2018-10-28] MEDS: DIVALPROEX SODIUM 500 MG DR TABLET PO SCH (21:07)
[2018-10-29 04:54] VITALS: BP 114/64
[2018-10-29] MEDS: LEVOTHYROXINE SODIUM 100 MCG TABLET PO SCH (05:33)
[2018-10-29 08:25] VITALS: BP 125/80
[2018-10-29] MEDS: QUEtiapine FUMARATE 200 MG TABLET PO SCH ×2 (08:29→21:08)
[2018-10-29] MEDS: CHOLECALCIFEROL (VIT D3) 1,000 UNITS TABLET PO SCH (08:29)
[2018-10-29 17:11] VITALS: BP 115/71
[2018-10-29] MEDS: LORazepam 2 MG TABLET PO PRN (17:31)
[2018-10-29] MEDS: DIVALPROEX SODIUM 500 MG DR TABLET PO SCH (21:08)
[2018-10-30 01:41] VITALS: BP 122/78
[2018-10-30] MEDS: LEVOTHYROXINE SODIUM 100 MCG TABLET PO SCH (06:35)
[2018-10-30] MEDS: QUEtiapine FUMARATE 200 MG TABLET PO SCH ×2 (09:00→20:25)
[2018-10-30 09:18] LABS: CHOL/HDL RATIO 2.5 (3.9-5.7); THYROID STIMULATING HORMONE 1.25 uIU/mL (0.36-3.74)
[2018-10-30] MEDS: CHOLECALCIFEROL (VIT D3) 1,000 UNITS TABLET PO SCH (09:31)
[2018-10-30] MEDS: LORazepam 2 MG TABLET PO PRN ×2 (12:41→17:32)
[2018-10-30 17:30] VITALS: BP 116/68
[2018-10-30] MEDS: DIVALPROEX SODIUM 500 MG DR TABLET PO SCH (20:25)
[2018-10-31 00:58] VITALS: BP 122/64
[2018-10-31] MEDS: LEVOTHYROXINE SODIUM 100 MCG TABLET PO SCH (06:30)
[2018-10-31] MEDS: CHOLECALCIFEROL (VIT D3) 1,000 UNITS TABLET PO SCH (09:24)
[2018-10-31] MEDS: QUEtiapine FUMARATE 200 MG TABLET PO SCH ×2 (09:24→20:19)
[2018-10-31] MEDS ORDERED: HALOPERIDOL LACTATE 5 MG/ML VIAL IM ONE (10:15)
[2018-10-31] MEDS ORDERED: DiphenhydrAMINE HCL 50 MG/ML VIAL IM ONE (10:15)
[2018-10-31] MEDS ORDERED: LORazepam 2 MG/ML VIAL IM ONE (10:15)
[2018-10-31] MEDS: HALOPERIDOL 5 MG TABLET PO PRN (16:14)
[2018-10-31] MEDS: LORazepam 2 MG TABLET PO PRN (16:14)
[2018-10-31 17:43] VITALS: BP 126/77
[2018-10-31] MEDS: DIVALPROEX SODIUM 500 MG DR TABLET PO SCH (20:19)
[2018-11-01 06:20] VITALS: BP 116/69
[2018-11-01] MEDS: LEVOTHYROXINE SODIUM 100 MCG TABLET PO SCH (06:35)
[2018-11-01 08:45] VITALS: BP 111/73
[2018-11-01] MEDS: QUEtiapine FUMARATE 200 MG TABLET PO SCH ×2 (09:10→20:23)
[2018-11-01] MEDS: CHOLECALCIFEROL (VIT D3) 1,000 UNITS TABLET PO SCH (09:10)
[2018-11-01] MEDS: LORazepam 2 MG TABLET PO PRN (18:20)
[2018-11-01] MEDS: DIVALPROEX SODIUM 500 MG DR TABLET PO SCH (20:24)
[2018-11-02] MEDS: LEVOTHYROXINE SODIUM 100 MCG TABLET PO SCH (05:33)
[2018-11-02 06:44] VITALS: BP 102/61
[2018-11-02] MEDS: QUEtiapine FUMARATE 200 MG TABLET PO SCH ×2 (08:52→20:01)
[2018-11-02] MEDS: CHOLECALCIFEROL (VIT D3) 1,000 UNITS TABLET PO SCH (08:52)
[2018-11-02] MEDS: LORazepam 2 MG TABLET PO PRN (16:09)
[2018-11-02 17:38] VITALS: BP 106/64
[2018-11-02] MEDS: DIVALPROEX SODIUM 500 MG DR TABLET PO SCH (20:02)
[2018-11-03 00:30] VITALS: BP 112/71
[2018-11-03] MEDS: LEVOTHYROXINE SODIUM 100 MCG TABLET PO SCH (06:26)
[2018-11-03] MEDS: QUEtiapine FUMARATE 200 MG TABLET PO SCH ×2 (08:11→19:11)
[2018-11-03] MEDS: CHOLECALCIFEROL (VIT D3) 1,000 UNITS TABLET PO SCH (08:11)
[2018-11-03 09:59] VITALS: BP 121/70
[2018-11-03 16:10] VITALS: BP 120/68
[2018-11-03] MEDS: LORazepam 2 MG TABLET PO PRN (19:12)
[2018-11-03] MEDS ORDERED: VALPROIC ACID 250 MG/5 ML SYRUP UDCUP PO SCH (21:00)
[2018-11-04 00:44] VITALS: BP 103/65
[2018-11-04] MEDS: LEVOTHYROXINE SODIUM 100 MCG TABLET PO SCH (06:40)
[2018-11-04 08:29] VITALS: BP 121/60
[2018-11-04] MEDS: QUEtiapine FUMARATE 200 MG TABLET PO SCH (08:54)
[2018-11-04] MEDS: CHOLECALCIFEROL (VIT D3) 1,000 UNITS TABLET PO SCH (08:54)
[2018-11-04] MEDS ORDERED: VALP250 PO (13:48)
[2018-11-04 16:21] VITALS: BP 122/84
== END 2018-11-04 15:35 | disposition home or self-care (01) | DRG 750 ==
LOC: EMS 02:19 → B3A 13:49 → B2S 11-03 10:56
DX: F25.0 Schizoaffective disorder, bipolar type (principal); E03.9 Hypothyroidism, unspecified; E55.9 Vitamin D deficiency, unspecified; E87.6 Hypokalemia; F41.9 Anxiety disorder, unspecified; F17.210 Nicotine dependence, cigarettes, uncomplicated; F15.10 Other stimulant abuse, uncomplicated; F12.10 Cannabis abuse, uncomplicated; F11.10 Opioid abuse, uncomplicated; Z91.5 Personal history of self-harm; Z79.899 Other long term (current) drug therapy; Z71.6 Tobacco abuse counseling; Z71.51 Drug abuse counseling and surveillance of drug abuser
CPT/HCPCS: 84132; 84443; G0480; J1200; J1630; J2060

== ENCOUNTER 2019-11-26 11:31 | Inpatient (IN) | payer MEDICAID ==
[~2019-11-26] VITALS: Ht 162.6 cm; Wt 54.5 kg
[~2019-11-26 11:31] MED LIST changes: -DIVA-78 PO; +VALP250C48 PO; -VITAD1000 PO
[2019-11-26 13:21] VITALS: BP 101/77
[2019-11-26] MEDS ORDERED: QUET200T PO (13:25)
[2019-11-26] MEDS ORDERED: DIVA125SP PO (13:25)
[2019-11-26] MEDS ORDERED: VALP250C48 PO (13:25)
[2019-11-26] MEDS ORDERED: LEVO25TA9 PO (13:26)
[2019-11-26] MEDS ORDERED: ZOLPIDEM TARTRATE 10 MG TABLET PO PRN (13:30)
[2019-11-26] MEDS ORDERED: HALOPERIDOL 5 MG TABLET PO PRN (13:30)
[2019-11-26 13:45] VITALS: BP 108/77
[2019-11-26] MEDS ORDERED: INFLUENZA VIRUS VACCINE QVS 2019-20 (3YR+)/PF 60 MCG/0.5 ML SYRINGE IM ONE (14:30)
[2019-11-26 16:00] VITALS: BP 109/80
[2019-11-26] MEDS: BACITRACIN 28.4 GM OINTMENT TP SCH (17:16)
[2019-11-26 18:45] VITALS: BP 113/72
[2019-11-26] MEDS ORDERED: MAGNESIUM HYDROXIDE SUSPENSION 30 ML UDCUP PO PRN (21:15)
[2019-11-26] MEDS ORDERED: DOCUSATE SODIUM 100 MG CAPSULE PO PRN (21:15)
[2019-11-26] MEDS ORDERED: ACETAMINOPHEN 325 MG TABLET PO PRN (21:15)
[2019-11-26] MEDS ORDERED: ONDANSETRON HCL 4 MG TABLET PO PRN (21:15)
[2019-11-26] MEDS ORDERED: PETROLATUM,WHITE 28 GM JELLY TP PRN (21:15)
[2019-11-26] MEDS ORDERED: LOPERAMIDE HCL 2 MG CAPSULE PO PRN (21:15)
[2019-11-26] MEDS ORDERED: CloNIDine HCL 0.1 MG TABLET PO PRN (21:15)
[2019-11-26] MEDS ORDERED: NICOTINE 14 MG/24 HOUR PATCH TD PRN (21:15)
[2019-11-26] MEDS ORDERED: IBUPROFEN 400 MG TABLET PO PRN (21:15)
[2019-11-26] MEDS ORDERED: GuaiFENesin/D-METHORPHAN [SUGAR-FREE] 200-20MG/10 ML SYRUP UDCUP PO PRN (21:15)
[2019-11-26] MEDS ORDERED: MAG HYDROX/AL HYDROX/SIMETH ES 30 ML SUSPENSION UDCUP PO PRN (21:15)
[2019-11-26] MEDS ORDERED: ALBUTEROL SULFATE HFA 90 MCG/PUFF 8 GM INHALER IH PRN (21:15)
[2019-11-27 00:16] VITALS: BP 100/64
[2019-11-27] MEDS: LEVOTHYROXINE SODIUM 25 MCG TABLET PO SCH (06:25)
[2019-11-27 07:43] LABS: BASOPHILS % (AUTO) 0.2 % (0.0-2.0); EOSINOPHILS % (AUTO) 0 % (1.0-6.0); HEMATOCRIT 30.3 % (36-46); HEMOGLOBIN 9.7 g/dL (12.0-16.0); LYMPHOCYTES # (AUTO) 2.8 K/uL (1.0-4.8); LYMPHOCYTES % (AUTO) 55.2 % (22.0-44.0); MEAN CORPUSCULAR HEMOGLOBIN 22.9 pg (26.0-34.0); MEAN CORPUSCULAR VOLUME 72 fL (80-100); MONOCYTES # (AUTO) 0.6 K/uL (0.1-1.0); MONOCYTES % (AUTO) 11.3 % (2.0-9.0); NEUTROPHILS # (AUTO) 1.7 K/uL (1.8-7.7); NEUTROPHILS % (AUTO) 33.3 % (40.0-70.0); PLATELET COUNT (AUTO) 214 K/uL (150-450); RED BLOOD CELL COUNT(AUTO) 4.24 MIL/uL (4.00-5.20); RED CELL DISTRIBUTION WIDTH 21.7 % (11.5-14.5)
[2019-11-27 08:14] LABS: HEMOGLOBIN A1C 5.3 % (4.5-6.2)
[2019-11-27 08:26] LABS: ALANINE AMINOTRANSFERASE 18 U/L (12-78); ALBUMIN 3.2 g/dL (3.4-5.0); ALKALINE PHOSPHATASE 81 U/L (46-116); ANION GAP 10 mmol/L (8-16); ASPARTATE AMINOTRANSFERASE 13 U/L (15-37); BILIRUBIN,TOTAL 0.3 mg/dL (0.1-1.0); CALCIUM, TOTAL 8.6 mg/dL (8.8-10.5); CARBON DIOXIDE 25 mmol/L (22-29); CHLORIDE 106 mmol/L (98-107); CHOL/HDL RATIO 2.8 (3.9-5.7); CHOLESTEROL 116 mg/dL (131-200); CREATININE 0.57 mg/dL (0.60-1.30); FREE T4 (FREE THYROXINE) 0.98 ng/dL (0.76-1.46); GLOMERULAR FILTR. RATE CALC > 60 mL/min (>60); GLUCOSE,RANDOM 79 mg/dL (70-110); HCG,QUANTITATIVE < 1 mIU/mL (0-6); HDL CHOLESTEROL 41 mg/dL (40-60); LDL CHOL (CALC.) 64 mg/dL (0-130); POTASSIUM 3.6 mmol/L (3.5-5.1); SODIUM SERUM 141 mmol/L (136-145); THYROID STIMULATING HORMONE 3.14 uIU/mL (0.36-3.74); TOTAL PROTEIN, SERUM 6.4 g/dL (6.4-8.2); TRIGLYCERIDES 56 mg/dL (15-150); UREA NITROGEN, BLOOD 14 mg/dL (7-18)
[2019-11-27 08:29] VITALS: BP 102/67
[2019-11-27] MEDS: BACITRACIN 28.4 GM OINTMENT TP SCH ×2 (09:00→20:20)
[2019-11-27] MEDS ORDERED: DIVA-76 PO (11:47)
[2019-11-27] MEDS: DIVALPROEX SODIUM 500 MG DR TABLET PO SCH (20:16)
[2019-11-27] MEDS: QUEtiapine FUMARATE 300 MG TABLET PO SCH (20:18)
[2019-11-27 21:21] VITALS: BP 100/72
[2019-11-28 03:04] VITALS: BP 120/66
[2019-11-28] MEDS: LEVOTHYROXINE SODIUM 25 MCG TABLET PO SCH (06:37)
[2019-11-28 08:12] VITALS: BP 116/72
[2019-11-28] MEDS: DIVALPROEX SODIUM 500 MG DR TABLET PO SCH ×2 (08:51→20:15)
[2019-11-28] MEDS: BACITRACIN 28.4 GM OINTMENT TP SCH ×2 (08:51→16:27)
[2019-11-28] MEDS: LORazepam 2 MG TABLET PO PRN ×2 (11:43→19:42)
[2019-11-28 16:00] VITALS: BP 107/65
[2019-11-28] MEDS: QUEtiapine FUMARATE 300 MG TABLET PO SCH (20:15)
[2019-11-29 04:44] VITALS: BP 101/68
[2019-11-29] MEDS: LEVOTHYROXINE SODIUM 25 MCG TABLET PO SCH (06:19)
[2019-11-29 08:13] VITALS: BP 118/73
[2019-11-29] MEDS: BACITRACIN 28.4 GM OINTMENT TP SCH ×2 (08:33→16:46)
[2019-11-29] MEDS: DIVALPROEX SODIUM 500 MG DR TABLET PO SCH ×2 (08:33→20:33)
[2019-11-29] MEDS: LORazepam 2 MG TABLET PO PRN (08:35)
[2019-11-29 16:10] VITALS: BP 111/65
[2019-11-29] MEDS: QUEtiapine FUMARATE 300 MG TABLET PO SCH (20:34)
[2019-11-30 04:59] VITALS: BP 105/77
[2019-11-30] MEDS: LEVOTHYROXINE SODIUM 25 MCG TABLET PO SCH (06:26)
[2019-11-30 08:19] VITALS: BP 101/67
[2019-11-30] MEDS: LORazepam 2 MG TABLET PO PRN (08:48)
[2019-11-30] MEDS: DIVALPROEX SODIUM 500 MG DR TABLET PO SCH ×2 (08:48→20:32)
[2019-11-30] MEDS: BACITRACIN 28.4 GM OINTMENT TP SCH ×2 (08:48→16:55)
[2019-11-30 16:08] VITALS: BP 102/66
[2019-11-30] MEDS: QUEtiapine FUMARATE 300 MG TABLET PO SCH (20:32)
[2019-12-01 05:25] VITALS: BP 100/67
[2019-12-01] MEDS: LEVOTHYROXINE SODIUM 25 MCG TABLET PO SCH (06:10)
[2019-12-01 08:11] VITALS: BP 107/76
[2019-12-01] MEDS: DIVALPROEX SODIUM 500 MG DR TABLET PO SCH (08:56)
[2019-12-01] MEDS: BACITRACIN 28.4 GM OINTMENT TP SCH (08:56)
[2019-12-01] MEDS ORDERED: LEVO25TA9 PO (10:23)
[2019-12-01 16:53] VITALS: BP 124/78
== END 2019-12-01 17:28 | disposition home or self-care (01) | DRG 750 ==
LOC: B2S 13:32 → B3A 11-27 11:52
PROVIDERS: ADMIT Psychiatry & Neurology Psychiatry; ATTEND Psychiatry & Neurology Psychiatry
DX: F25.9 Schizoaffective disorder, unspecified (principal); D64.9 Anemia, unspecified; E03.9 Hypothyroidism, unspecified; Z28.21 Immunization not carried out because of patient refusal; F19.10 Other psychoactive substance abuse, uncomplicated
CPT/HCPCS: 83036; 84439; 84443

== ENCOUNTER 2020-01-27 22:12 | Inpatient (IN) | payer MEDICAID ==
[~2020-01-27] VITALS: Ht 167.6 cm; Wt 56.2 kg
[~2020-01-27 22:12] MED LIST changes: +DIVA-76 PO; -LEVO100 PO; +LEVO25TA9 PO; -VALP250C48 PO
[2020-01-27 22:38] LABS: BASOPHILS % (AUTO) 0.2 % (0.0-2.0); EOSINOPHILS % (AUTO) 0 % (1.0-6.0); HEMATOCRIT 33.2 % (36-46); HEMOGLOBIN 10.5 g/dL (12.0-16.0); LYMPHOCYTES # (AUTO) 1.4 K/uL (1.0-4.8); LYMPHOCYTES % (AUTO) 19.8 % (22.0-44.0); MEAN CORPUSCULAR HEMOGLOBIN 22.9 pg (26.0-34.0); MEAN CORPUSCULAR HGB CONC 31.7 G/dL (31.0-37.0); MEAN CORPUSCULAR VOLUME 73 fL (80-100); MONOCYTES # (AUTO) 0.7 K/uL (0.1-1.0); MONOCYTES % (AUTO) 10.4 % (2.0-9.0); NEUTROPHILS # (AUTO) 4.9 K/uL (1.8-7.7); NEUTROPHILS % (AUTO) 69.6 % (40.0-70.0); PLATELET COUNT (AUTO) 232 K/uL (150-450); RED BLOOD CELL COUNT(AUTO) 4.58 MIL/uL (4.00-5.20); RED CELL DISTRIBUTION WIDTH 20.3 % (11.5-14.5)
[2020-01-27 22:48] LABS: ANION GAP 11 mmol/L (8-16); CALCIUM, TOTAL 8.6 mg/dL (8.8-10.5); CARBON DIOXIDE 24 mmol/L (22-29); CHLORIDE 106 mmol/L (98-107); CREATININE 0.93 mg/dL (0.60-1.30); GLOMERULAR FILTR. RATE CALC > 60 mL/min (>60); GLUCOSE,RANDOM 61 mg/dL (70-110); SODIUM SERUM 141 mmol/L (136-145); UREA NITROGEN, BLOOD 11 mg/dL (7-18)
[2020-01-27 22:58] LABS: AMPHET/METH SCREEN,URINE POSITIVE (NEGATIVE); BARBITURATE SCREEN, URINE NEGATIVE (NEGATIVE); BENZODIAZEPINES SCREEN,URINE NEGATIVE (NEGATIVE); CANNABINOID SCREEN,URINE NEGATIVE (NEGATIVE); COCAINE SCREEN,URINE NEGATIVE (NEGATIVE); METHADONE SCREEN, URINE NEGATIVE (NEGATIVE); OPIATE SCREEN,URINE NEGATIVE (NEGATIVE)
[2020-01-27 22:59] LABS: PHENCYCLIDINE SCREEN,URINE NEGATIVE (NEGATIVE)
[2020-01-27 23:01] LABS: PLATELET MORPHOLOGY COMMENT LARGE PLTS PRESENT
[2020-01-27 23:03] LABS: ALANINE AMINOTRANSFERASE 15 U/L (12-78); ALKALINE PHOSPHATASE 101 U/L (46-116); ASPARTATE AMINOTRANSFERASE 10 U/L (15-37); BILIRUBIN,TOTAL 0.2 mg/dL (0.1-1.0); HCG,QUANTITATIVE < 1 mIU/mL (0-6); TOTAL PROTEIN, SERUM 7.6 g/dL (6.4-8.2)
[2020-01-28 07:16] VITALS: BP 101/65
[2020-01-28] MEDS ORDERED: PETROLATUM,WHITE 28 GM JELLY TP PRN (13:00)
[2020-01-28] MEDS ORDERED: CloNIDine HCL 0.1 MG TABLET PO PRN (13:00)
[2020-01-28] MEDS ORDERED: ACETAMINOPHEN 325 MG TABLET PO PRN (13:00)
[2020-01-28] MEDS ORDERED: LOPERAMIDE HCL 2 MG CAPSULE PO PRN (13:00)
[2020-01-28] MEDS ORDERED: MAG HYDROX/AL HYDROX/SIMETH ES 30 ML SUSPENSION UDCUP PO PRN (13:00)
[2020-01-28] MEDS ORDERED: MAGNESIUM HYDROXIDE SUSPENSION 30 ML UDCUP PO PRN (13:00)
[2020-01-28] MEDS ORDERED: BACITRACIN 28.4 GM OINTMENT TP PRN (13:00)
[2020-01-28] MEDS ORDERED: IBUPROFEN 600 MG TABLET PO PRN (13:00)
[2020-01-28] MEDS ORDERED: BENZOCAINE/MENTHOL LOZENGE MM PRN (13:00)
[2020-01-28] MEDS ORDERED: ALBUTEROL SULFATE HFA 90 MCG/PUFF 8 GM INHALER IH PRN (13:00)
[2020-01-28] MEDS ORDERED: OMEPRAZOLE 20 MG CAPSULE PO PRN (13:00)
[2020-01-28] MEDS ORDERED: DOCUSATE SODIUM 100 MG CAPSULE PO PRN (13:00)
[2020-01-28] MEDS ORDERED: ONDANSETRON HCL 4 MG TABLET PO PRN (13:00)
[2020-01-28 16:18] VITALS: BP 101/62
[2020-01-28 18:53] VITALS: BP 101/62
[2020-01-28] MEDS: QUEtiapine FUMARATE 300 MG TABLET PO SCH (20:36)
[2020-01-28] MEDS: DIVALPROEX SODIUM 500 MG DR TABLET PO SCH (20:36)
[2020-01-29 00:53] VITALS: BP 117/88
[2020-01-29] MEDS: LEVOTHYROXINE SODIUM 25 MCG TABLET PO SCH (06:21)
[2020-01-29 08:25] LABS: CHOL/HDL RATIO 2.4 (3.9-5.7)
[2020-01-29] MEDS: MULTIVITAMINS WITH MINERALS, THERAPEUTIC TABLET PO SCH (08:46)
[2020-01-29] MEDS: FERROUS SULFATE 325 MG EC TABLET PO SCH (08:47)
[2020-01-29] MEDS: DIVALPROEX SODIUM 500 MG DR TABLET PO SCH ×2 (08:47→20:31)
[2020-01-29 16:34] VITALS: BP 104/70
[2020-01-29] MEDS: LORazepam 2 MG TABLET PO PRN (19:49)
[2020-01-29] MEDS ORDERED: LORazepam 2 MG/ML VIAL ONE (19:50)
[2020-01-29] MEDS ORDERED: HALOPERIDOL LACTATE 5 MG/ML VIAL ONE (19:51)
[2020-01-29] MEDS ORDERED: DiphenhydrAMINE HCL 50 MG/ML VIAL ONE (19:51)
[2020-01-29] MEDS ORDERED: DiphenhydrAMINE HCL 50 MG/ML VIAL IM ONE (20:00)
[2020-01-29] MEDS ORDERED: LORazepam 2 MG/ML VIAL IM ONE (20:00)
[2020-01-29] MEDS ORDERED: HALOPERIDOL LACTATE 5 MG/ML VIAL IM ONE (20:00)
[2020-01-29] MEDS: QUEtiapine FUMARATE 300 MG TABLET PO SCH (20:31)
[2020-01-29 20:34] VITALS: BP 104/65
[2020-01-30 05:31] VITALS: BP 102/66
[2020-01-30] MEDS: LEVOTHYROXINE SODIUM 25 MCG TABLET PO SCH (06:25)
[2020-01-30] MEDS: MULTIVITAMINS WITH MINERALS, THERAPEUTIC TABLET PO SCH (08:51)
[2020-01-30] MEDS: DIVALPROEX SODIUM 500 MG DR TABLET PO SCH ×2 (08:51→21:00)
[2020-01-30] MEDS: FERROUS SULFATE 325 MG EC TABLET PO SCH (08:51)
[2020-01-30] MEDS ORDERED: HALOPERIDOL LACTATE 5 MG/ML VIAL IM ONE (15:45)
[2020-01-30] MEDS ORDERED: DiphenhydrAMINE HCL 50 MG/ML VIAL IM ONE (15:45)
[2020-01-30] MEDS ORDERED: LORazepam 2 MG/ML VIAL IM ONE (15:45)
[2020-01-30 16:09] VITALS: BP 105/80
[2020-01-30] MEDS: LORazepam 2 MG TABLET PO PRN (20:16)
[2020-01-30] MEDS: QUEtiapine FUMARATE 300 MG TABLET PO SCH (21:00)
[2020-01-31 06:17] VITALS: BP 94/58
[2020-01-31] MEDS: LEVOTHYROXINE SODIUM 25 MCG TABLET PO SCH (06:21)
[2020-01-31 08:00] VITALS: BP 108/68
[2020-01-31] MEDS: MULTIVITAMINS WITH MINERALS, THERAPEUTIC TABLET PO SCH (08:30)
[2020-01-31] MEDS: DIVALPROEX SODIUM 500 MG DR TABLET PO SCH ×2 (08:30→20:04)
[2020-01-31] MEDS: FERROUS SULFATE 325 MG EC TABLET PO SCH (08:31)
[2020-01-31] MEDS: LORazepam 2 MG TABLET PO PRN ×2 (13:28→20:04)
[2020-01-31 16:08] VITALS: BP 106/64
[2020-01-31] MEDS: QUEtiapine FUMARATE 300 MG TABLET PO SCH (20:04)
[2020-02-01 03:53] VITALS: BP 112/69
[2020-02-01] MEDS: LEVOTHYROXINE SODIUM 25 MCG TABLET PO SCH (06:35)
[2020-02-01] MEDS: FERROUS SULFATE 325 MG EC TABLET PO SCH (09:00)
[2020-02-01] MEDS: DIVALPROEX SODIUM 500 MG DR TABLET PO SCH ×2 (09:00→21:04)
[2020-02-01] MEDS: MULTIVITAMINS WITH MINERALS, THERAPEUTIC TABLET PO SCH (09:00)
[2020-02-01 09:48] VITALS: BP 100/60
[2020-02-01 16:18] VITALS: BP 118/86
[2020-02-01] MEDS ORDERED: DiphenhydrAMINE HCL 50 MG/ML VIAL ONE (19:55)
[2020-02-01] MEDS ORDERED: HALOPERIDOL LACTATE 5 MG/ML VIAL ONE (19:55)
[2020-02-01] MEDS ORDERED: LORazepam 2 MG/ML VIAL ONE (19:55)
[2020-02-01] MEDS ORDERED: HALOPERIDOL LACTATE 5 MG/ML VIAL IM ONE (20:00)
[2020-02-01] MEDS ORDERED: DiphenhydrAMINE HCL 50 MG/ML VIAL IM ONE (20:00)
[2020-02-01] MEDS ORDERED: LORazepam 2 MG/ML VIAL IM ONE (20:00)
[2020-02-01] MEDS: QUEtiapine FUMARATE 300 MG TABLET PO SCH (21:04)
[2020-02-02 01:40] VITALS: BP 108/68
[2020-02-02] MEDS: LEVOTHYROXINE SODIUM 25 MCG TABLET PO SCH (07:19)
[2020-02-02] MEDS: DIVALPROEX SODIUM 500 MG DR TABLET PO SCH ×2 (08:19→20:47)
[2020-02-02] MEDS: FERROUS SULFATE 325 MG EC TABLET PO SCH (08:19)
[2020-02-02] MEDS: MULTIVITAMINS WITH MINERALS, THERAPEUTIC TABLET PO SCH (08:19)
[2020-02-02] MEDS: LORazepam 2 MG TABLET PO PRN ×2 (16:04→20:49)
[2020-02-02 17:54] VITALS: BP 100/66
[2020-02-02] MEDS: QUEtiapine FUMARATE 300 MG TABLET PO SCH (20:47)
[2020-02-03 04:49] VITALS: BP 102/77
[2020-02-03] MEDS: LEVOTHYROXINE SODIUM 25 MCG TABLET PO SCH (06:20)
[2020-02-03 08:27] VITALS: BP 110/64
[2020-02-03] MEDS: DIVALPROEX SODIUM 500 MG DR TABLET PO SCH ×2 (08:35→20:27)
[2020-02-03] MEDS: MULTIVITAMINS WITH MINERALS, THERAPEUTIC TABLET PO SCH (08:35)
[2020-02-03] MEDS: FERROUS SULFATE 325 MG EC TABLET PO SCH (08:35)
[2020-02-03] MEDS: LORazepam 2 MG TABLET PO PRN (15:36)
[2020-02-03 16:15] VITALS: BP 100/60
[2020-02-03] MEDS: HALOPERIDOL 5 MG TABLET PO PRN (18:46)
[2020-02-03] MEDS: QUEtiapine FUMARATE 300 MG TABLET PO SCH (20:27)
[2020-02-03] MEDS: ZOLPIDEM TARTRATE 10 MG TABLET PO PRN (20:27)
[2020-02-04 03:33] VITALS: BP 99/64
[2020-02-04] MEDS: LEVOTHYROXINE SODIUM 25 MCG TABLET PO SCH (06:57)
[2020-02-04 08:41] VITALS: BP 101/54
[2020-02-04] MEDS: MULTIVITAMINS WITH MINERALS, THERAPEUTIC TABLET PO SCH (08:57)
[2020-02-04] MEDS: DIVALPROEX SODIUM 500 MG DR TABLET PO SCH ×2 (08:57→20:22)
[2020-02-04] MEDS: FERROUS SULFATE 325 MG EC TABLET PO SCH (08:58)
[2020-02-04 16:00] VITALS: BP 101/62
[2020-02-04] MEDS: LORazepam 2 MG TABLET PO PRN (17:03)
[2020-02-04] MEDS: QUEtiapine FUMARATE 300 MG TABLET PO SCH (20:22)
[2020-02-05 05:43] VITALS: BP 100/61
[2020-02-05] MEDS: LEVOTHYROXINE SODIUM 25 MCG TABLET PO SCH (06:52)
[2020-02-05 08:27] VITALS: BP 103/66
[2020-02-05] MEDS: FERROUS SULFATE 325 MG EC TABLET PO SCH (09:05)
[2020-02-05] MEDS: DIVALPROEX SODIUM 500 MG DR TABLET PO SCH ×2 (09:05→20:32)
[2020-02-05] MEDS: MULTIVITAMINS WITH MINERALS, THERAPEUTIC TABLET PO SCH (09:05)
[2020-02-05] MEDS: LORazepam 2 MG TABLET PO PRN ×2 (09:07→18:14)
[2020-02-05 16:17] VITALS: BP 109/66
[2020-02-05] MEDS: QUEtiapine FUMARATE 300 MG TABLET PO SCH (20:32)
[2020-02-05] MEDS: ZOLPIDEM TARTRATE 10 MG TABLET PO PRN (20:33)
[2020-02-06 00:55] VITALS: BP 140/87
[2020-02-06] MEDS: LEVOTHYROXINE SODIUM 25 MCG TABLET PO SCH (06:23)
[2020-02-06 08:34] VITALS: BP 110/64
[2020-02-06] MEDS: DIVALPROEX SODIUM 500 MG DR TABLET PO SCH ×2 (08:49→21:12)
[2020-02-06] MEDS: FERROUS SULFATE 325 MG EC TABLET PO SCH (08:49)
[2020-02-06] MEDS: MULTIVITAMINS WITH MINERALS, THERAPEUTIC TABLET PO SCH (08:49)
[2020-02-06] MEDS: LORazepam 2 MG TABLET PO PRN ×2 (12:38→18:16)
[2020-02-06 16:00] VITALS: BP 101/62
[2020-02-06] MEDS: QUEtiapine FUMARATE 300 MG TABLET PO SCH (21:12)
[2020-02-06] MEDS: ZOLPIDEM TARTRATE 10 MG TABLET PO PRN (21:12)
[2020-02-07 03:10] VITALS: BP 98/60
[2020-02-07] MEDS: LEVOTHYROXINE SODIUM 25 MCG TABLET PO SCH (06:53)
[2020-02-07 08:25] VITALS: BP 100/62
[2020-02-07] MEDS: DIVALPROEX SODIUM 500 MG DR TABLET PO SCH ×2 (09:03→20:11)
[2020-02-07] MEDS: MULTIVITAMINS WITH MINERALS, THERAPEUTIC TABLET PO SCH (09:03)
[2020-02-07] MEDS: FERROUS SULFATE 325 MG EC TABLET PO SCH (09:03)
[2020-02-07] MEDS: HALOPERIDOL 5 MG TABLET PO PRN (14:19)
[2020-02-07 17:47] VITALS: BP 98/52
[2020-02-07] MEDS: QUEtiapine FUMARATE 300 MG TABLET PO SCH (20:11)
[2020-02-08 06:02] VITALS: BP 100/68
[2020-02-08] MEDS: LEVOTHYROXINE SODIUM 25 MCG TABLET PO SCH (06:48)
[2020-02-08] MEDS: DIVALPROEX SODIUM 500 MG DR TABLET PO SCH ×2 (09:13→21:01)
[2020-02-08] MEDS: FERROUS SULFATE 325 MG EC TABLET PO SCH (09:13)
[2020-02-08] MEDS: MULTIVITAMINS WITH MINERALS, THERAPEUTIC TABLET PO SCH (09:13)
[2020-02-08] MEDS: HALOPERIDOL 5 MG TABLET PO PRN ×2 (12:56→18:24)
[2020-02-08 16:36] VITALS: BP 100/60
[2020-02-08] MEDS: QUEtiapine FUMARATE 300 MG TABLET PO SCH (21:02)
[2020-02-09 04:54] VITALS: BP 101/63
[2020-02-09] MEDS: LEVOTHYROXINE SODIUM 25 MCG TABLET PO SCH (06:40)
[2020-02-09 08:23] VITALS: BP 123/64
[2020-02-09] MEDS: FERROUS SULFATE 325 MG EC TABLET PO SCH (09:26)
[2020-02-09] MEDS: DIVALPROEX SODIUM 500 MG DR TABLET PO SCH ×2 (09:26→20:07)
[2020-02-09] MEDS: MULTIVITAMINS WITH MINERALS, THERAPEUTIC TABLET PO SCH (09:26)
[2020-02-09] MEDS: HALOPERIDOL 5 MG TABLET PO PRN (16:02)
[2020-02-09 17:08] VITALS: BP 109/73
[2020-02-09] MEDS: QUEtiapine FUMARATE 300 MG TABLET PO SCH (20:07)
[2020-02-10 01:32] VITALS: BP 102/70
[2020-02-10] MEDS: LEVOTHYROXINE SODIUM 25 MCG TABLET PO SCH (06:42)
[2020-02-10 08:15] VITALS: BP 100/65
[2020-02-10 08:18] LABS: HEMATOCRIT 30.9 % (36-46); HEMOGLOBIN 9.8 g/dL (12.0-16.0); MEAN CORPUSCULAR HGB CONC 31.8 G/dL (31.0-37.0); MEAN CORPUSCULAR VOLUME 75 fL (80-100); PLATELET COUNT (AUTO) 204 K/uL (150-450); RED BLOOD CELL COUNT(AUTO) 4.09 MIL/uL (4.00-5.20); RED CELL DISTRIBUTION WIDTH 24.3 % (11.5-14.5)
[2020-02-10 08:33] LABS: ANION GAP 8 mmol/L (8-16); CALCIUM, TOTAL 8.7 mg/dL (8.8-10.5); CARBON DIOXIDE 28 mmol/L (22-29); CHLORIDE 107 mmol/L (98-107); CREATININE 0.64 mg/dL (0.60-1.30); GLOMERULAR FILTR. RATE CALC > 60 mL/min (>60); GLUCOSE,RANDOM 79 mg/dL (70-110); POTASSIUM 3.9 mmol/L (3.5-5.1); SODIUM SERUM 143 mmol/L (136-145); UREA NITROGEN, BLOOD 16 mg/dL (7-18)
[2020-02-10] MEDS: DIVALPROEX SODIUM 500 MG DR TABLET PO SCH ×2 (08:33→20:35)
[2020-02-10] MEDS: MULTIVITAMINS WITH MINERALS, THERAPEUTIC TABLET PO SCH (08:33)
[2020-02-10] MEDS: FERROUS SULFATE 325 MG EC TABLET PO SCH (08:33)
[2020-02-10 08:35] LABS: % IRON SATURATION 5.7 % (22-44); IRON, SERUM 23 mcg/dL (50-175); TOTAL IRON BINDING CAPACITY 402 mcg/dL (250-450)
[2020-02-10 10:23] LABS: BAND NEUTROPHILS % (MANUAL) 2 % (0-5); LYMPHOCYTES % (MANUAL) 31 % (22-44); MONOCYTES % (MANUAL) 2 % (2-9); SEGMENTED NEUTROPHILS % 65 % (40-70)
[2020-02-10 17:01] VITALS: BP 110/67
[2020-02-10] MEDS: HALOPERIDOL 5 MG TABLET PO PRN (19:32)
[2020-02-10] MEDS: QUEtiapine FUMARATE 300 MG TABLET PO SCH (20:36)
[2020-02-11 05:02] VITALS: BP 112/72
[2020-02-11] MEDS: LEVOTHYROXINE SODIUM 25 MCG TABLET PO SCH (05:54)
[2020-02-11] MEDS: FERROUS SULFATE 325 MG EC TABLET PO SCH ×3 (08:28→16:29)
[2020-02-11] MEDS: DIVALPROEX SODIUM 500 MG DR TABLET PO SCH ×2 (08:28→20:38)
[2020-02-11] MEDS: MULTIVITAMINS WITH MINERALS, THERAPEUTIC TABLET PO SCH (08:28)
[2020-02-11 08:30] VITALS: BP 100/58
[2020-02-11] MEDS: HALOPERIDOL 5 MG TABLET PO PRN (13:27)
[2020-02-11 16:16] VITALS: BP 113/72
[2020-02-11] MEDS: QUEtiapine FUMARATE 300 MG TABLET PO SCH (20:38)
[2020-02-12 04:19] VITALS: BP 100/76
[2020-02-12] MEDS: LEVOTHYROXINE SODIUM 25 MCG TABLET PO SCH (06:27)
[2020-02-12 08:35] VITALS: BP 90/58
[2020-02-12] MEDS: DIVALPROEX SODIUM 500 MG DR TABLET PO SCH ×2 (08:45→20:43)
[2020-02-12] MEDS: MULTIVITAMINS WITH MINERALS, THERAPEUTIC TABLET PO SCH (08:45)
[2020-02-12] MEDS: FERROUS SULFATE 325 MG EC TABLET PO SCH ×3 (08:45→16:29)
[2020-02-12 13:46] VITALS: BP 100/68
[2020-02-12 16:21] VITALS: BP 123/60
[2020-02-12] MEDS: QUEtiapine FUMARATE 300 MG TABLET PO SCH (20:43)
[2020-02-13 03:08] VITALS: BP 126/74
[2020-02-13] MEDS: LEVOTHYROXINE SODIUM 25 MCG TABLET PO SCH (06:16)
[2020-02-13 08:01] LABS: HEMATOCRIT 31.8 % (36-46); HEMOGLOBIN 10.1 g/dL (12.0-16.0); MEAN CORPUSCULAR HEMOGLOBIN 24.5 pg (26.0-34.0); MEAN CORPUSCULAR HGB CONC 31.9 G/dL (31.0-37.0); MEAN CORPUSCULAR VOLUME 77 fL (80-100); PLATELET COUNT (AUTO) 179 K/uL (150-450); RED BLOOD CELL COUNT(AUTO) 4.15 MIL/uL (4.00-5.20)
[2020-02-13 08:08] LABS: ANION GAP 7 mmol/L (8-16); CALCIUM, TOTAL 8.6 mg/dL (8.8-10.5); CARBON DIOXIDE 29 mmol/L (22-29); CHLORIDE 106 mmol/L (98-107); CREATININE 0.72 mg/dL (0.60-1.30); GLOMERULAR FILTR. RATE CALC > 60 mL/min (>60); GLUCOSE,RANDOM 74 mg/dL (70-110); PHOSPHORUS 4.3 mg/dL (2.5-4.9); SODIUM SERUM 142 mmol/L (136-145); UREA NITROGEN, BLOOD 11 mg/dL (7-18)
[2020-02-13 08:32] VITALS: BP 117/75
[2020-02-13] MEDS: MULTIVITAMINS WITH MINERALS, THERAPEUTIC TABLET PO SCH (08:34)
[2020-02-13] MEDS: DIVALPROEX SODIUM 500 MG DR TABLET PO SCH ×2 (08:34→20:48)
[2020-02-13] MEDS: FERROUS SULFATE 325 MG EC TABLET PO SCH ×3 (08:34→16:09)
[2020-02-13 08:57] LABS: BAND NEUTROPHILS % (MANUAL) 1 % (0-5); LYMPHOCYTES % (MANUAL) 43 % (22-44); MONOCYTES % (MANUAL) 9 % (2-9); SEGMENTED NEUTROPHILS % 47 % (40-70)
[2020-02-13 16:35] VITALS: BP 114/83
[2020-02-13] MEDS: HALOPERIDOL 5 MG TABLET PO PRN (18:42)
[2020-02-13] MEDS: QUEtiapine FUMARATE 300 MG TABLET PO SCH (20:48)
[2020-02-14 06:07] VITALS: BP 109/63
[2020-02-14] MEDS: LEVOTHYROXINE SODIUM 25 MCG TABLET PO SCH (06:35)
[2020-02-14 08:30] VITALS: BP 100/57
[2020-02-14] MEDS: DIVALPROEX SODIUM 500 MG DR TABLET PO SCH ×2 (08:50→20:48)
[2020-02-14] MEDS: MULTIVITAMINS WITH MINERALS, THERAPEUTIC TABLET PO SCH (08:50)
[2020-02-14] MEDS: FERROUS SULFATE 325 MG EC TABLET PO SCH ×3 (08:50→16:37)
[2020-02-14 16:30] VITALS: BP 107/76
[2020-02-14] MEDS: QUEtiapine FUMARATE 300 MG TABLET PO SCH (20:48)
[2020-02-15 06:26] VITALS: BP 102/63
[2020-02-15] MEDS: LEVOTHYROXINE SODIUM 25 MCG TABLET PO SCH (06:28)
[2020-02-15 08:16] VITALS: BP 109/62
[2020-02-15] MEDS: FERROUS SULFATE 325 MG EC TABLET PO SCH ×3 (08:40→17:03)
[2020-02-15] MEDS: DIVALPROEX SODIUM 500 MG DR TABLET PO SCH ×2 (08:40→20:03)
[2020-02-15] MEDS: MULTIVITAMINS WITH MINERALS, THERAPEUTIC TABLET PO SCH (08:40)
[2020-02-15 17:34] VITALS: BP 110/67
[2020-02-15] MEDS: QUEtiapine FUMARATE 300 MG TABLET PO SCH (20:04)
[2020-02-16 04:47] VITALS: BP 101/74
[2020-02-16] MEDS: LEVOTHYROXINE SODIUM 25 MCG TABLET PO SCH (06:36)
[2020-02-16 08:29] VITALS: BP 110/55
[2020-02-16] MEDS: DIVALPROEX SODIUM 500 MG DR TABLET PO SCH ×2 (08:30→21:20)
[2020-02-16] MEDS: FERROUS SULFATE 325 MG EC TABLET PO SCH ×3 (08:30→16:51)
[2020-02-16] MEDS: MULTIVITAMINS WITH MINERALS, THERAPEUTIC TABLET PO SCH (08:30)
[2020-02-16 16:35] VITALS: BP 105/66
[2020-02-16] MEDS: QUEtiapine FUMARATE 300 MG TABLET PO SCH (21:20)
[2020-02-17 05:11] VITALS: BP 97/55
[2020-02-17] MEDS: LEVOTHYROXINE SODIUM 25 MCG TABLET PO SCH (06:03)
[2020-02-17] MEDS: FERROUS SULFATE 325 MG EC TABLET PO SCH ×3 (08:22→16:45)
[2020-02-17] MEDS: MULTIVITAMINS WITH MINERALS, THERAPEUTIC TABLET PO SCH (08:22)
[2020-02-17] MEDS: DIVALPROEX SODIUM 500 MG DR TABLET PO SCH ×2 (08:22→20:16)
[2020-02-17 08:27] VITALS: BP 100/54
[2020-02-17 16:15] VITALS: BP 124/69
[2020-02-17] MEDS: QUEtiapine FUMARATE 300 MG TABLET PO SCH (20:16)
[2020-02-18 02:49] VITALS: BP 102/62
[2020-02-18] MEDS: LEVOTHYROXINE SODIUM 25 MCG TABLET PO SCH (06:04)
[2020-02-18 08:10] VITALS: BP 124/77
[2020-02-18] MEDS: MULTIVITAMINS WITH MINERALS, THERAPEUTIC TABLET PO SCH (08:57)
[2020-02-18] MEDS: DIVALPROEX SODIUM 500 MG DR TABLET PO SCH ×2 (08:57→20:32)
[2020-02-18] MEDS: FERROUS SULFATE 325 MG EC TABLET PO SCH ×3 (08:57→16:28)
[2020-02-18] MEDS: QUEtiapine FUMARATE 300 MG TABLET PO SCH (20:32)
[2020-02-18 21:37] VITALS: BP 118/77
[2020-02-19 02:51] VITALS: BP 107/78
[2020-02-19] MEDS: LEVOTHYROXINE SODIUM 25 MCG TABLET PO SCH (06:29)
[2020-02-19 08:36] VITALS: BP 100/56
[2020-02-19] MEDS: DIVALPROEX SODIUM 500 MG DR TABLET PO SCH ×2 (10:01→21:13)
[2020-02-19] MEDS: MULTIVITAMINS WITH MINERALS, THERAPEUTIC TABLET PO SCH (10:01)
[2020-02-19] MEDS: FERROUS SULFATE 325 MG EC TABLET PO SCH ×3 (10:01→17:26)
[2020-02-19 16:37] VITALS: BP 121/79
[2020-02-19] MEDS: QUEtiapine FUMARATE 300 MG TABLET PO SCH (21:13)
[2020-02-20 04:37] VITALS: BP 112/74
[2020-02-20] MEDS: LEVOTHYROXINE SODIUM 25 MCG TABLET PO SCH (06:17)
[2020-02-20] MEDS: MULTIVITAMINS WITH MINERALS, THERAPEUTIC TABLET PO SCH (08:18)
[2020-02-20] MEDS: DIVALPROEX SODIUM 500 MG DR TABLET PO SCH ×2 (08:18→21:01)
[2020-02-20] MEDS: FERROUS SULFATE 325 MG EC TABLET PO SCH ×3 (08:18→17:10)
[2020-02-20 12:35] VITALS: BP 107/71
[2020-02-20 16:17] VITALS: BP 103/66
[2020-02-20] MEDS: QUEtiapine FUMARATE 300 MG TABLET PO SCH (21:01)
[2020-02-21 03:16] VITALS: BP 100/64
[2020-02-21] MEDS: LEVOTHYROXINE SODIUM 25 MCG TABLET PO SCH (06:11)
[2020-02-21 08:44] VITALS: BP 97/68
[2020-02-21] MEDS: FERROUS SULFATE 325 MG EC TABLET PO SCH ×3 (08:45→16:25)
[2020-02-21] MEDS: DIVALPROEX SODIUM 500 MG DR TABLET PO SCH ×2 (08:45→20:15)
[2020-02-21] MEDS: MULTIVITAMINS WITH MINERALS, THERAPEUTIC TABLET PO SCH (08:45)
[2020-02-21 17:29] VITALS: BP 106/62
[2020-02-21] MEDS: QUEtiapine FUMARATE 300 MG TABLET PO SCH (20:15)
[2020-02-22 03:40] VITALS: BP 100/74
[2020-02-22] MEDS: LEVOTHYROXINE SODIUM 25 MCG TABLET PO SCH (06:24)
[2020-02-22 08:42] VITALS: BP 102/66
[2020-02-22] MEDS: MULTIVITAMINS WITH MINERALS, THERAPEUTIC TABLET PO SCH (08:45)
[2020-02-22] MEDS: FERROUS SULFATE 325 MG EC TABLET PO SCH ×3 (08:45→16:31)
[2020-02-22] MEDS: DIVALPROEX SODIUM 500 MG DR TABLET PO SCH ×2 (08:45→20:25)
[2020-02-22 16:16] VITALS: BP 127/64
[2020-02-22] MEDS: QUEtiapine FUMARATE 300 MG TABLET PO SCH (20:25)
[2020-02-23 05:13] VITALS: BP 100/61
[2020-02-23] MEDS: LEVOTHYROXINE SODIUM 25 MCG TABLET PO SCH (06:38)
[2020-02-23 08:30] VITALS: BP 117/71
[2020-02-23] MEDS: MULTIVITAMINS WITH MINERALS, THERAPEUTIC TABLET PO SCH (08:59)
[2020-02-23] MEDS: FERROUS SULFATE 325 MG EC TABLET PO SCH ×3 (08:59→17:16)
[2020-02-23] MEDS: DIVALPROEX SODIUM 500 MG DR TABLET PO SCH ×2 (08:59→20:30)
[2020-02-23 16:56] VITALS: BP 114/74
[2020-02-23] MEDS: QUEtiapine FUMARATE 300 MG TABLET PO SCH (20:30)
[2020-02-24 02:38] VITALS: BP 110/65
[2020-02-24] MEDS: LEVOTHYROXINE SODIUM 25 MCG TABLET PO SCH (06:42)
[2020-02-24] MEDS: FERROUS SULFATE 325 MG EC TABLET PO SCH ×3 (08:15→16:17)
[2020-02-24] MEDS: MULTIVITAMINS WITH MINERALS, THERAPEUTIC TABLET PO SCH (08:15)
[2020-02-24] MEDS: DIVALPROEX SODIUM 500 MG DR TABLET PO SCH ×2 (08:15→20:25)
[2020-02-24 09:19] VITALS: BP 101/73
[2020-02-24 16:04] VITALS: BP 140/82
[2020-02-24] MEDS: QUEtiapine FUMARATE 300 MG TABLET PO SCH (20:25)
[2020-02-25] MEDS: LEVOTHYROXINE SODIUM 25 MCG TABLET PO SCH (06:26)
[2020-02-25 07:09] VITALS: BP 132/78
[2020-02-25] MEDS: FERROUS SULFATE 325 MG EC TABLET PO SCH ×3 (08:15→16:27)
[2020-02-25] MEDS: MULTIVITAMINS WITH MINERALS, THERAPEUTIC TABLET PO SCH (08:15)
[2020-02-25] MEDS: DIVALPROEX SODIUM 500 MG DR TABLET PO SCH ×2 (08:15→20:10)
[2020-02-25 08:35] VITALS: BP 105/62
[2020-02-25 16:20] VITALS: BP 116/76
[2020-02-25] MEDS: QUEtiapine FUMARATE 300 MG TABLET PO SCH (20:11)
[2020-02-26 03:11] VITALS: BP 122/73
[2020-02-26] MEDS: LEVOTHYROXINE SODIUM 25 MCG TABLET PO SCH (07:01)
[2020-02-26] MEDS: FERROUS SULFATE 325 MG EC TABLET PO SCH ×3 (08:14→17:06)
[2020-02-26] MEDS: DIVALPROEX SODIUM 500 MG DR TABLET PO SCH ×2 (08:14→20:40)
[2020-02-26] MEDS: MULTIVITAMINS WITH MINERALS, THERAPEUTIC TABLET PO SCH (08:14)
[2020-02-26 08:17] VITALS: BP 100/61
[2020-02-26 16:14] VITALS: BP 131/79
[2020-02-26] MEDS: QUEtiapine FUMARATE 300 MG TABLET PO SCH (20:40)
[2020-02-27 04:34] VITALS: BP 126/74
[2020-02-27] MEDS: LEVOTHYROXINE SODIUM 25 MCG TABLET PO SCH (06:49)
[2020-02-27 08:14] VITALS: BP 110/56
[2020-02-27] MEDS: FERROUS SULFATE 325 MG EC TABLET PO SCH ×3 (08:41→17:12)
[2020-02-27] MEDS: DIVALPROEX SODIUM 500 MG DR TABLET PO SCH ×2 (08:41→20:29)
[2020-02-27] MEDS: MULTIVITAMINS WITH MINERALS, THERAPEUTIC TABLET PO SCH (08:41)
[2020-02-27 16:20] VITALS: BP 119/88
[2020-02-27] MEDS: QUEtiapine FUMARATE 300 MG TABLET PO SCH (20:29)
[2020-02-28 05:50] VITALS: BP 121/73
[2020-02-28] MEDS: LEVOTHYROXINE SODIUM 25 MCG TABLET PO SCH (06:30)
[2020-02-28 08:25] VITALS: BP 109/73
[2020-02-28] MEDS: FERROUS SULFATE 325 MG EC TABLET PO SCH ×3 (08:26→16:03)
[2020-02-28] MEDS: DIVALPROEX SODIUM 500 MG DR TABLET PO SCH ×2 (08:26→20:04)
[2020-02-28] MEDS: MULTIVITAMINS WITH MINERALS, THERAPEUTIC TABLET PO SCH (08:26)
[2020-02-28 16:30] VITALS: BP 125/89
[2020-02-28] MEDS: QUEtiapine FUMARATE 300 MG TABLET PO SCH (20:04)
[2020-02-29 00:27] VITALS: BP 122/88
[2020-02-29] MEDS: LEVOTHYROXINE SODIUM 25 MCG TABLET PO SCH (06:24)
[2020-02-29] MEDS: MULTIVITAMINS WITH MINERALS, THERAPEUTIC TABLET PO SCH (08:05)
[2020-02-29] MEDS: DIVALPROEX SODIUM 500 MG DR TABLET PO SCH ×2 (08:05→21:23)
[2020-02-29] MEDS: FERROUS SULFATE 325 MG EC TABLET PO SCH ×3 (08:05→16:51)
[2020-02-29 08:16] VITALS: BP 118/80
[2020-02-29 16:47] VITALS: BP 123/88
[2020-02-29] MEDS: QUEtiapine FUMARATE 300 MG TABLET PO SCH (21:04)
[2020-03-01 04:27] VITALS: BP 110/74
[2020-03-01] MEDS: LEVOTHYROXINE SODIUM 25 MCG TABLET PO SCH (06:31)
[2020-03-01] MEDS: MULTIVITAMINS WITH MINERALS, THERAPEUTIC TABLET PO SCH (08:08)
[2020-03-01] MEDS: FERROUS SULFATE 325 MG EC TABLET PO SCH ×3 (08:08→16:22)
[2020-03-01] MEDS: DIVALPROEX SODIUM 500 MG DR TABLET PO SCH ×2 (08:08→20:27)
[2020-03-01 08:28] VITALS: BP 110/60
[2020-03-01 08:36] LABS: HEMATOCRIT 37.4 % (36-46); HEMOGLOBIN 12.2 g/dL (12.0-16.0); MEAN CORPUSCULAR HEMOGLOBIN 27.7 pg (26.0-34.0); MEAN CORPUSCULAR HGB CONC 32.7 G/dL (31.0-37.0); MEAN CORPUSCULAR VOLUME 85 fL (80-100); PLATELET COUNT (AUTO) 127 K/uL (150-450); RED BLOOD CELL COUNT(AUTO) 4.42 MIL/uL (4.00-5.20); RED CELL DISTRIBUTION WIDTH 29.2 % (11.5-14.5)
[2020-03-01 08:42] LABS: ANION GAP 9 mmol/L (8-16); CALCIUM, TOTAL 8.6 mg/dL (8.8-10.5); CARBON DIOXIDE 28 mmol/L (22-29); CHLORIDE 105 mmol/L (98-107); CREATININE 0.74 mg/dL (0.60-1.30); GLOMERULAR FILTR. RATE CALC > 60 mL/min (>60); GLUCOSE,RANDOM 89 mg/dL (70-110); PHOSPHORUS 4.3 mg/dL (2.5-4.9); POTASSIUM 3.7 mmol/L (3.5-5.1); SODIUM SERUM 142 mmol/L (136-145); UREA NITROGEN, BLOOD 16 mg/dL (7-18)
[2020-03-01 08:56] LABS: IRON, SERUM 105 mcg/dL (50-175); TOTAL IRON BINDING CAPACITY 328 mcg/dL (250-450)
[2020-03-01 09:19] LABS: BAND NEUTROPHILS % (MANUAL) 3 % (0-5); LYMPHOCYTES % (MANUAL) 44 % (22-44); MONOCYTES % (MANUAL) 6 % (2-9); SEGMENTED NEUTROPHILS % 47 % (40-70)
[2020-03-01 16:38] VITALS: BP 115/76
[2020-03-01] MEDS: QUEtiapine FUMARATE 300 MG TABLET PO SCH (20:27)
[2020-03-02 04:08] VITALS: BP 123/71
[2020-03-02] MEDS: LEVOTHYROXINE SODIUM 25 MCG TABLET PO SCH (06:24)
[2020-03-02] MEDS: MULTIVITAMINS WITH MINERALS, THERAPEUTIC TABLET PO SCH (08:14)
[2020-03-02] MEDS: DIVALPROEX SODIUM 500 MG DR TABLET PO SCH ×2 (08:14→20:15)
[2020-03-02] MEDS: FERROUS SULFATE 325 MG EC TABLET PO SCH ×3 (08:14→16:50)
[2020-03-02 08:26] VITALS: BP 121/82
[2020-03-02 16:14] VITALS: BP 114/76
[2020-03-02] MEDS ORDERED: TUBERCULIN, PURIFIED PROTEIN DERIVATIVE 5 TU/0.1 ML SYRINGE ID ONE (16:30)
[2020-03-02] MEDS: QUEtiapine FUMARATE 300 MG TABLET PO SCH (20:15)
[2020-03-03 04:12] VITALS: BP 124/76
[2020-03-03] MEDS: LEVOTHYROXINE SODIUM 25 MCG TABLET PO SCH (06:06)
[2020-03-03] MEDS: FERROUS SULFATE 325 MG EC TABLET PO SCH ×2 (08:09→12:28)
[2020-03-03] MEDS: MULTIVITAMINS WITH MINERALS, THERAPEUTIC TABLET PO SCH (08:09)
[2020-03-03] MEDS: DIVALPROEX SODIUM 500 MG DR TABLET PO SCH (08:09)
[2020-03-03 08:54] VITALS: BP 96/63
[2020-03-03] MEDS ORDERED: TUBERCULIN, PURIFIED PROTEIN DERIVATIVE 5 TU/0.1 ML SYRINGE ID ONE (11:30)
[2020-03-03] MEDS ORDERED: DIVA-78 PO (13:50)
[2020-03-03] MEDS ORDERED: QUET300T2 PO (13:51)
[2020-03-03] MEDS ORDERED: LEVO25TA9 PO (13:54)
[2020-03-03] MEDS ORDERED: FERR-89 PO (13:54)
== END 2020-03-03 15:23 | disposition home or self-care (01) | DRG 750 ==
LOC: EMS 22:12 → B2S 01-28 03:30 → B3A 02-01 20:05
PROVIDERS: ADMIT Psychiatry & Neurology Psychiatry; ATTEND Psychiatry & Neurology Psychiatry
DX: F25.0 Schizoaffective disorder, bipolar type (principal); D50.9 Iron deficiency anemia, unspecified; Z91.14 Patient's other noncompliance with medication regimen; E03.9 Hypothyroidism, unspecified; E55.9 Vitamin D deficiency, unspecified; F12.90 Cannabis use, unspecified, uncomplicated; F15.10 Other stimulant abuse, uncomplicated; F17.200 Nicotine dependence, unspecified, uncomplicated; K59.00 Constipation, unspecified; Z72.89 Other problems related to lifestyle
CPT/HCPCS: 83540; 83550; 83735; 84100; 85007; G0480; J1200; J1630; J2060